=== PATIENT | female | born 1945 | race Caucasian/White ===

== ENCOUNTER 2016-04-18 20:01 | Emergency (ER) | payer MEDICARE, BC ==
[2016-04-18 20:53] VITALS: BP 146/55
--- NOTE | 2016-04-18 21:23 | UC ---
Respiratory Complaint HPI - History of Current Complaint Chief Complaint: UCGeneralIllness Stated Complaint: SINUS/UPPER RESPIRATORY Time Seen by Provider: 04/18/16 21:06 Hx Obtained From: Patient Hx Last Menstrual Period: n/a ?: No Onset/Duration: Gradual Onset, Lasting Days - 12, Worse Since - today Character: Cough: Productive Aggravating Factors: Deep Breaths Alleviating Factors: Nothing Associated Signs And Symptoms: Positive: Dyspnea, Wheezing, Nasal Congestion - Risk Factors Cardiac Risk Factors: Diabetes Tuberculosis Risk Factors: Corticosteriod Use - Allergies/Home Medications Allergies/Adverse Reactions: Allergies Allergy/AdvReac Type Severity Reaction Status Date / Time Benzocaine Allergy Mild Rash Verified 12/22/14 18:54 Cefaclor [From Ceclor] Allergy Mild Rash Verified 12/22/14 18:54 Doxycycline Allergy Mild Rash Verified 12/22/14 18:54 Penicillins Allergy Mild Rash Verified 12/22/14 18:54 Codeine AdvReac Mild stomach Verified 12/22/14 18:54 upset Sulfa Drugs AdvReac Mild Diarrhea Verified 12/22/14 18:54 Levofloxacin [From Levaquin] AdvReac See Comment Verified 12/22/14 18:54 Prednisone AdvReac extreme Verified 12/22/14 18:54 hyperglycemia 400s zithromax AdvReac See Comment Uncoded 12/22/14 18:54 Home Medications: Home Medications Clindamycin Cap(NF) [Cleocin 300 mg Cap(NF)] 300 mg PO Q6H 04/18/16 [History Confirmed 04/18/16] Teriparatide (Recombinant) [Forteo] 600 mcg SC DAILY 04/18/16 [History Confirmed 04/18/16] PMH/Surg Hx/FS Hx/Imm Hx Endocrine History Of: Reports: Diabetes, Thyroid Disease - hypo Cardiovascular History Of: Reports: Cardiac Disorders - CAD, Hypertension Denies: Pacemaker/ICD Respiratory History Of: Reports: COPD Denies: Asthma, Bronchitis GI/ History Of: Reports: Kidney Stones Denies: Ulcer - Surgical History Surgical History: Yes Surgery Procedure, Year, and Place: CORONARY BYPASS- QUAD-2008. GALL BLADDER REMOVAL,BLADDER REPAIR - Family History Known Family History: Positive: Cardiac Disease - Social History Occupation: Retired Lives: With Family Alcohol Use: None Substance Use Type: None, Prescribed Substance Use Comment - Amount & Last Used: no narcotics Smoking Status (MU): Never Smoked Tobacco Have You Smoked in the Last Year: No Review of Systems Respiratory: Shortness Of Breath, Cough Neurological: Headache All Other Systems Reviewed And Are Negative: Yes Physical Exam Triage Information Reviewed: Yes Appearance: No Pain Distress, Ill-Appearing, Cachectic Vital Signs: Initial Vital Signs Temp 97.9 F 04/18/16 20:47 Pulse 87 04/18/16 20:47 Resp 18 04/18/16 20:47 BP 146/55 04/18/16 20:47 Pulse Ox 100 04/18/16 20:47 Vital Signs Reviewed: Yes Eyes: Positive: Conjunctiva Inflamed ENT: Positive: Pharynx normal, TMs normal Neck exam: Normal Neck: Positive: No Lymphadenopathy Respiratory: Positive: Decreased breath sounds, Wheezing - diffuse expiratory with left sided bronchial breath sounds. Cardiovascular: Positive: RRR, No Murmur Musculoskeletal Exam: Normal Neurological Exam: Normal Psychological Exam: Normal Skin Exam: Normal UC Diagnostic Evaluation - Laboratory O2 Sat by Pulse Oximetry: 100 Respiratory Course/Dx - Differential Dx/Diagnosis Differential Diagnosis/HQI/PQRI: Asthma, Lower Resp Infection, Sinusitis Provider Diagnoses: Pneumonia, organism unknown. COPD Discharge - Discharge Plan Condition: Stable Disposition: HOME Prescriptions: Albuterol 2.5MG/3ML (0.083%)* [Ventolin 2.5 MG/3 ML NEB.WANG*] 2.5 mg INH Q6H PRN #120 neb.soln PRN Reason: Respiratory Distress Cefdinir 300 mg PO BID #20 cap Ipratropium 0.5MG/2.5ML NEB* [Atrovent 0.5 MG NEB.WANG*] 0.5 mg INH Q6H PRN #60 units PRN Reason: Sob/Wheezing predniSONE TAB* [Deltasone TAB*] 20 mg PO DAILY #18 tab Patient Education Materials: Pneumonia (ED), Cefdinir (By mouth), Prednisone ( By mouth)
[2016-04-18] MEDS ORDERED: Cefdinir 250mg/5 ml* 100 ml ORAL.SUSP PO ONE (21:33)
--- NOTE | 2016-04-18 21:34 | RAD ---
HISTORY: Cough and shortness of breath COMPARISONS: October 05, 2014 VIEWS: 2: Frontal dual-energy and lateral views of the chest. FINDINGS: CARDIOMEDIASTINAL SILHOUETTE: The cardiomediastinal silhouette is normal. JEANNETTE: The jeannette are normal. PLEURA: The costophrenic angles are sharp. No pleural abnormalities are noted. LUNG PARENCHYMA: There is hyperinflation with flattening of the diaphragm and expansion of the AP diameter of the chest. There is a calcified granuloma of the left upper lobe. ABDOMEN: The upper abdomen is clear. There is no subphrenic gas. BONES AND SOFT TISSUES: The patient is status post median sternotomy. OTHER: None. IMPRESSION: HYPERINFLATION, CONSISTENT WITH COPD. NO ACTIVE CARDIOPULMONARY DISEASE.
== END 2016-04-18 22:05 | disposition home or self-care (01) ==
LOC: UCCORT 20:01
DX: J18.9 Pneumonia, unspecified organism (principal); J44.9 Chronic obstructive pulmonary disease, unspecified; Z88.6 Allergy status to analgesic agent; Z88.1 Allergy status to other antibiotic agents; Z88.0 Allergy status to penicillin; Z88.2 Allergy status to sulfonamides; Z88.8 Allergy status to other drugs, medicaments and biological substances
CPT/HCPCS: 71020; 99212; G0463

== ENCOUNTER 2016-05-26 21:29 | Emergency (ER) | payer MEDICARE, BC ==
[2016-05-26 21:59] VITALS: BP 181/49
[2016-05-26] MEDS ORDERED: HYDROcodone/ACETAMIN 5-325 MG* 1 TAB PO ONE (21:59)
[2016-05-26] MEDS ORDERED: Neomyc/Polym/HC 1% OTIC SUSP* **OTIC ONE (22:05)
--- NOTE | 2016-05-26 22:06 | UC ---
Ear Complaint HPI - HPI Summary HPI Summary: dx'd with "URI" and "pneumonia" in April, was on a cephalosporin which was irritating her stomach, so she was switched to clindamycin today. Suddenly when a cold breeze hit the side of her face today she developed severe pain in left ear and all along the left cheek to under the left jaw. "It feels swollen." Hurts to swallow. No fever. She called her doctor's office and from her description they were worried about an abscess. She did have a dental checkup recently but no procedures. Pain is constant, focused on inside of left ear but spreads over jaw. Hurts to swallow. - History of Current Complaint Chief Complaint: UCGeneralIllness Stated Complaint: EARS,SWOLLEN GLANDS Time Seen by Provider: 05/26/16 21:40 Hx Obtained From: Patient Hx Last Menstrual Period: n/a Onset/Duration: Sudden Onset, Lasting Hours - 3 Severity Initially: Moderate Severity Currently: Severe Aggravating Factors: Nothing Alleviating Factors: Nothing Associated Signs/Symptoms: Positive: URI Symptoms - cough, dx pneumonia a month ago, on second antibiotic. Negative: Discharge, Hearing Loss, Foreign Body Sensation, Trauma to Ear, Swelling @ - Allergies/Home Medications Allergies/Adverse Reactions: Allergies Allergy/AdvReac Type Severity Reaction Status Date / Time Benzocaine Allergy Mild Rash Verified 05/26/16 21:39 Cefaclor [From Ceclor] Allergy Mild Rash Verified 05/26/16 21:39 Doxycycline Allergy Mild Rash Verified 05/26/16 21:39 Penicillins Allergy Mild Rash Verified 05/26/16 21:39 Codeine AdvReac Mild stomach Verified 05/26/16 21:39 upset Sulfa Drugs AdvReac Mild Diarrhea Verified 05/26/16 21:39 Levofloxacin [From Levaquin] AdvReac See Comment Verified 05/26/16 21:39 Prednisone AdvReac extreme Verified 05/26/16 21:39 hyperglycemia 400s zithromax AdvReac See Comment Uncoded 05/26/16 21:39 PMH/Surg Hx/FS Hx/Imm Hx Endocrine History Of: Reports: Diabetes, Thyroid Disease - hypo Cardiovascular History Of: Reports: Cardiac Disorders - CAD, Hypertension Denies: Pacemaker/ICD Respiratory History Of: Reports: COPD Denies: Asthma, Bronchitis GI/ History Of: Reports: Kidney Stones Denies: Ulcer - Surgical History Surgical History: Yes Surgery Procedure, Year, and Place: CORONARY BYPASS- QUAD-2009. GALL BLADDER REMOVAL,BLADDER REPAIR - Family History Known Family History: Positive: Cardiac Disease - Social History Occupation: Retired Lives: With Family Alcohol Use: None Substance Use Type: None, Prescribed Substance Use Comment - Amount & Last Used: no narcotics Smoking Status (MU): Never Smoked Tobacco Have You Smoked in the Last Year: No Review of Systems Constitutional: Fatigue Skin: Negative Eyes: Negative ENT: Ear Ache - left, Nasal Discharge - mild, for past few weeks Respiratory: Cough - productive, for about 4 weeks now Cardiovascular: Negative Gastrointestinal: Negative Genitourinary: Negative Motor: Negative Neurovascular: Negative Musculoskeletal: Negative Neurological: Other - facial pain/ear pain on left side Psychological: Negative All Other Systems Reviewed And Are Negative: Yes Physical Exam Triage Information Reviewed: Yes Appearance: Well-Nourished, Pain Distress - appears chronically ill. Very thin. Hardly opens her eyes when I question her. Answers in a faint, whispery voice. Elizabeth skin, looks well perfused. Alert, conversant, Thin Vital Signs: Initial Vital Signs Temp 98.1 F 05/26/16 21:32 Pulse 81 05/26/16 21:32 Resp 16 05/26/16 21:32 BP 181/49 05/26/16 21:32 Pulse Ox 100 05/26/16 21:32 Vital Signs Reviewed: Yes Eye Exam: Normal Eyes: Positive: Conjunctiva Clear ENT: Positive: Hearing grossly normal, Pharynx normal - able to open jaw fully, no abscess evident, teeth without carious appearance., TMs normal, Muffled/ hoarse voice - she speaks in a whisper, but there is no muffled quality to voice. Swallowing saliva without difficulty.. Negative: Pharyngeal erythema, Nasal congestion, Nasal drainage, TM bulging, TM dull, TM red - left ear canal does seem tender to touch, tragus is sore, hurts to pull pinna, Tonsillar swelling, Tonsillar exudate, Trismus Neck exam: Normal Neck: Positive: Supple, Nontender, No Lymphadenopathy - no swelling, no palpable nodes Respiratory Exam: Normal, Other - productive cough Musculoskeletal Exam: Normal Neurological Exam: Normal Psychological Exam: Normal Skin Exam: Normal Ear Complaint Course/Dx - Course Course Of Treatment: ?source of pain? Trigeminal neuralgia vs external otitis - Differential Dx/Diagnosis Differential Diagnosis/HQI/PQRI: Otitis Externa, Otitis Media, Other - abscess Provider Diagnoses: otitis externa Discharge - Discharge Plan Condition: Stable Disposition: HOME Prescriptions: HYDROcodone/ACETAMIN 5-325 MG* [[place] 5-325 TAB*] 2 tab PO Q6H PRN #20 tab MDD 6 tab PRN Reason: Pain Patient Education Materials: Otitis Externa (ED), Trigeminal Neuralgia (ED)
[2016-05-27] MEDS ORDERED: Neomyc/Polym/HC 1% OTIC SUSP* **OTIC LEFT EAR SCH (09:00)
== END 2016-05-26 22:17 | disposition home or self-care (01) ==
LOC: UCCORT 21:29
DX: H60.92 Unspecified otitis externa, left ear (principal); Z95.1 Presence of aortocoronary bypass graft; Z90.49 Acquired absence of other specified parts of digestive tract; Z88.1 Allergy status to other antibiotic agents; Z88.5 Allergy status to narcotic agent; Z88.0 Allergy status to penicillin; Z88.2 Allergy status to sulfonamides
CPT/HCPCS: 99213; A9270-GY; G0463

== ENCOUNTER 2016-07-22 15:01 | Emergency (ER) | payer BC, MEDICARE ==
[2016-07-22 15:46] VITALS: BP 186/60
--- NOTE | 2016-07-22 16:04 | UC ---
Minor Trauma HPI - HPI Summary HPI Summary: 70 yo female was wrapped in leash and fell striking the right side of her body no LOC right orbital pain right shoulder pain right lateral neck pain mild pain - History of Current Complaint Chief Complaint: UCGeneralIllness Stated Complaint: RIGHT EYE,SHOULDER,ARM,& WRIST PAIN(FALL) Time Seen by Provider: 07/22/16 15:44 Hx Obtained From: Patient Hx Last Menstrual Period: n/a Onset/Duration: Sudden Onset Onset Of Pain: Immediate Severity Initially: Moderate Severity Currently: Mild Pain Intensity: 4 Pain Scale Used: 0-10 Numeric Mechanism Of Injury: Fall From A Standing Position Aggravating Factor(s): Deep Breaths, Movement Alleviating Factor(s): OTC Meds Associated Signs And Symptoms: Positive: Ecchymosis, Swelling. Negative: Loss Of Consciousness, Other: - Risk Factors Penetrating Injury Risk Factors: Negative - Allergies/Home Medications Allergies/Adverse Reactions: Allergies Allergy/AdvReac Type Severity Reaction Status Date / Time Benzocaine Allergy Mild Rash Verified 07/22/16 15:30 Cefaclor [From Ceclor] Allergy Mild Rash Verified 07/22/16 15:30 Doxycycline Allergy Mild Rash Verified 07/22/16 15:30 Penicillins Allergy Mild Rash Verified 07/22/16 15:30 Codeine AdvReac Mild stomach Verified 07/22/16 15:30 upset Sulfa Drugs AdvReac Mild Diarrhea Verified 07/22/16 15:30 Levofloxacin [From Levaquin] AdvReac See Comment Verified 07/22/16 15:30 Prednisone AdvReac extreme Verified 07/22/16 15:30 hyperglycemia 400s zithromax AdvReac See Comment Uncoded 07/22/16 15:30 Home Medications: Home Medications Ezetimibe TAB* [Zetia TAB*] 10 mg PO DAILY 07/22/16 [History Confirmed 07/22/16] Iron-Vitamin C [Fe C Tab 100-250 mg] 1 tab DAILY 07/22/16 [History Confirmed 03/28] PMH/Surg Hx/FS Hx/Imm Hx Endocrine History Of: Reports: Diabetes - Type 1, Thyroid Disease - hypo Cardiovascular History Of: Reports: Cardiac Disorders - CAD, Hypertension Denies: Pacemaker/ICD Respiratory History Of: Reports: COPD, Pneumonia Denies: Asthma, Bronchitis GI/ History Of: Reports: Kidney Stones Denies: Ulcer - Surgical History Surgical History: Yes Surgery Procedure, Year, and Place: CORONARY BYPASS- QUAD-2009. GALL BLADDER REMOVAL,BLADDER REPAIR. RIGHT leg vascular surgery 2014 - Family History Known Family History: Positive: Cardiac Disease - Social History Alcohol Use: None Substance Use Type: None Substance Use Comment - Amount & Last Used: no narcotics Smoking Status (MU): Never Smoked Tobacco Have You Smoked in the Last Year: No - Immunization History Most Recent Influenza Vaccination: January 2016 Most Recent Tetanus Shot: UTD Most Recent Pneumonia Vaccination: UTD Review of Systems Constitutional: Negative Skin: Bruising Eyes: Negative ENT: Negative Respiratory: Negative Cardiovascular: Negative Gastrointestinal: Negative Genitourinary: Negative Motor: Negative Neurovascular: Negative Musculoskeletal: Arthralgia Neurological: Headache Psychological: Negative All Other Systems Reviewed And Are Negative: Yes Physical Exam Triage Information Reviewed: Yes Appearance: Well-Appearing, No Pain Distress, Well-Nourished Vital Signs: Initial Vital Signs Temp 97.4 F 07/22/16 15:31 Pulse 65 07/22/16 15:31 Resp 18 07/22/16 15:31 BP 186/60 07/22/16 15:31 Pulse Ox 100 07/22/16 15:31 Vital Signs Reviewed: Yes Eyes: Positive: Conjunctiva Clear ENT: Positive: Hearing grossly normal, TMs normal. Negative: Nasal congestion, Nasal drainage, Tonsillar exudate, Trismus, Muffled/hoarse voice Dental Exam: Normal Dental: Positive: Other: - no malocclusion/no TMJ tenderness Neck: Positive: Supple, Nontender, No Lymphadenopathy Respiratory: Positive: Chest non-tender - tender sternum-states she is always tender here, No respiratory distress, No accessory muscle use, Crackles - right base- recently rxed for pneumonia Cardiovascular: Positive: RRR, No Murmur Musculoskeletal: Positive: Other: - see image Psychological Exam: Normal Skin Exam: Normal Minor Trauma Course/Dx - Differential Dx/Diagnosis Provider Diagnoses: fall. right periorbital hematoma. right shoulder contusion Discharge - Discharge Plan Condition: Stable Disposition: HOME Patient Education Materials: Shoulder Pain (ED), Hematoma (ED) Referrals: Mo Caal MD [Primary Care Provider] - 2 Weeks (you BP was 186/60) Additional Instructions: rest tylenol ice recheck for new symptoms Images Head: 1 - hematoma Front/Back of Body, Lg ([place]): 1 - tender/near full abduction
--- NOTE | 2016-07-22 16:31 | RAD ---
Indication: Right shoulder injury. 3 views of the right shoulder demonstrates no definite fracture. AC joint degenerative change is noted. IMPRESSION: No fracture of the right shoulder is noted. AC joint arthritis is noted.
== END 2016-07-22 16:44 | disposition home or self-care (01) ==
LOC: UCCORT 15:01
DX: S40.011A Contusion of right shoulder, initial encounter (principal); S05.11XA Contusion of eyeball and orbital tissues, right eye, initial encounter; W19.XXXA Unspecified fall, initial encounter; Y93.9 Activity, unspecified; Y92.9 Unspecified place or not applicable; Z88.1 Allergy status to other antibiotic agents; Z88.5 Allergy status to narcotic agent; Z88.0 Allergy status to penicillin; Z88.2 Allergy status to sulfonamides; E10.9 Type 1 diabetes mellitus without complications; E03.9 Hypothyroidism, unspecified; I25.10 Atherosclerotic heart disease of native coronary artery without angina pectoris; Z95.1 Presence of aortocoronary bypass graft; I10 Essential (primary) hypertension; Z90.49 Acquired absence of other specified parts of digestive tract
CPT/HCPCS: 99212; G0463

== ENCOUNTER 2016-10-23 12:25 | Emergency (ER) | payer BC, MEDICARE ==
--- NOTE | 2016-10-23 12:32 | ED ---
HPI Chest Pain - HPI Summary HPI Summary: 71 YEAR OLD FEMALE PRESENTS WITH COMPLAINS OF LEFT SIDED CHEST PAIN WITH RADIATION TO THE SHOULDER BLADES. - History of Current Complaint Time Seen by Provider: 10/23/16 12:28 - Allergy/Home Medications Allergies/Adverse Reactions: Allergies Allergy/AdvReac Type Severity Reaction Status Date / Time Benzocaine Allergy Mild Rash Verified 10/23/16 12:38 Cefaclor [From Ceclor] Allergy Mild Rash Verified 10/23/16 12:38 Doxycycline Allergy Mild Rash Verified 10/23/16 12:38 Penicillins Allergy Mild Rash Verified 10/23/16 12:38 Codeine AdvReac Mild stomach Verified 10/23/16 12:38 upset Sulfa Drugs AdvReac Mild Diarrhea Verified 10/23/16 12:38 Levofloxacin [From Levaquin] AdvReac See Comment Verified 10/23/16 12:38 Prednisone AdvReac extreme Verified 10/23/16 12:38 hyperglycemia 400s zithromax AdvReac See Comment Uncoded 10/23/16 12:38 PMH/Surg Hx/FS Hx/Imm Hx Endocrine/Hematology History: Reports: Hx Diabetes - Type 1, Hx Thyroid Disease - hypo Cardiovascular History: Reports: Hx Hypertension Denies: Hx Pacemaker/ICD Respiratory History: Reports: Hx Chronic Obstructive Pulmonary Disease (COPD), Hx Pneumonia Denies: Hx Asthma GI History: Denies: Hx Ulcer History: Reports: Hx Kidney Stones - Surgical History Surgery Procedure, Year, and Place: CORONARY BYPASS- QUAD-2008. GALL BLADDER REMOVAL,BLADDER REPAIR. RIGHT leg vascular surgery 2014 Infectious Disease History: Denies: Hx Hepatitis, Hx Human Immunodeficiency Virus (HIV) - Family History Known Family History: Positive: Cardiac Disease - Social History Alcohol Use: None Substance Use Type: Reports: None Substance Use Comment - Amount & Last Used: no narcotics Smoking Status (MU): Never Smoked Tobacco Have You Smoked in the Last Year: No Review of Systems Positive: Chest Pain All Other Systems Reviewed And Are Negative: Yes Physical Exam Triage Information Reviewed: Yes Chest Pain Course/Dx - Diagnoses Provider Diagnoses: Chest pain Discharge - Discharge Plan Condition: Stable Disposition: AGAINST MEDICAL ADVICE Patient Education Materials: Chest Pain (ED) Referrals: Mo Caal MD [Primary Care Provider] -
[2016-10-23 12:38] VITALS: BP 148/43
[2016-10-23] MEDS ORDERED: Aspirin Low Dose CHEW TAB* 81 MG PO ONE (12:39)
== END 2016-10-23 12:57 | disposition left against medical advice (07) ==
LOC: UCCORT 12:25
DX: R07.9 Chest pain, unspecified (principal); J44.9 Chronic obstructive pulmonary disease, unspecified; B20 Human immunodeficiency virus [HIV] disease; Z88.4 Allergy status to anesthetic agent; Z88.1 Allergy status to other antibiotic agents; Z88.5 Allergy status to narcotic agent; Z88.0 Allergy status to penicillin; Z88.2 Allergy status to sulfonamides; Z88.8 Allergy status to other drugs, medicaments and biological substances; E10.8 Type 1 diabetes mellitus with unspecified complications; Z95.0 Presence of cardiac pacemaker; Z95.1 Presence of aortocoronary bypass graft
CPT/HCPCS: 93005; 99212; A9270-GY; G0463

== ENCOUNTER 2017-05-02 12:13 | Emergency (ER) | payer MEDICARE, BC ==
--- OUTSIDE RECORDS SUMMARY | 2017-05-02 14:12 | XMS REPORT ---
:1945 External Reference #:[id number] Author Organization [facility] Address [address] [place] [address] Phone [phone] Care Team Providers Name Role Phone Mo Caal M.D. 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 Active Onset: 07/05/2014 Benign essential hypertension Mo Caal M.D. Active Onset: 07/05/2014 Hypothyroidism Mo Caal M.D. Active Onset: 07/05/2014 Type 1 diabetes mellitus Mo Caal M.D. Active Onset: 07/19/2014 Coronary atherosclerosis Mo Caal M.D. Active Onset: 12/06/2014 Chronic obstructive lung disease Mo Caal M.D. Active Onset: 01/16/2015 Chronic obstructive lung disease Mo Caal M.D. Active Onset: 05/17/2015 Diabetic retinopathy Mo Caal M.D. Active Onset: 07/31/2015 Absence seizure Mo Caal M.D. Active Onset: 08/04/2015 Osteoporosis Mo Caal M.D. Active Family History Date Family Member(s) Problem(s) Comments Father due to Heart Attack () Mother due to COPD () Mother due to Congestive Heart Failure () Social History Type Date Description Comments Lives With Spouse Smoke-Free Home is smoke-free Occupation Retired Work Status Retired Cigarette Use Never Smoked Cigarettes ETOH Use Denies alcohol use Recreational Drug Use Never Used Drugs Smoking 04/19/2017 Patient has never smoked Daily Caffeine Consumes on average 2 cups of regular coffee per day Enjoy Exercising 01/07/2017 Enjoys exercising ONE day a week. Tattoo/Piercing Pierced ears Sun Exposure 01/07/2017 Does not use sunscreen Teaching done to use 30 or more sunscreen. Seat Belt/Car Seat Always uses seat belt Smoke Alarms Yes Allergies, Adverse Reactions, Alerts Date Description Reaction Status Severity Comments 07/05/2014 Penicillin active Rash 07/05/2014 Ceclor active 07/05/2014 Doxycycline active 07/05/2014 Sulfa Antibiotics active Stomach 07/05/2014 Benzocaine active Severe Rash 07/05/2014 Codeine active Stomach 07/05/2014 Erythromycin active Stomach Pain 11/05/2014 Zithromax active per endocrineologist 07/10/2015 Crow Inhibitors cough active Mild 07/14/2016 Levaquin active weakness Medications Medication Date Status Form Strength Qnty SIG Indications Ordering Provider Furosemide 01/07 Active Tablets 20mg 1 by mouth every day Mo Lopez M.D. Vitamin C 07/14 Active Tablets 500mg 30tab Take One D64.9 s Tablet By Mo Jaramillo Every M.D. Day With Iron Divalproex 01/12 Active Tablets ER 500mg 30tab Take One Afua, Sodium ER 24HR s Tablet By Mo Jaramillo Every M.D. Day At Bedtime Losartan 01/09 Active Tablets 100mg 1 by mouth R05 Afua, Potassium every day Mo Lopez M.D. Levetiracetam 01/09 Active Tablets 750mg 60tab Take One s Tablet By NimaShai Jaramillo Twice M.D. A Day Metoprolol 10/29 Active Tablets 25mg 90tab 04/13 by mouth Afua Tartrate s twice a day Nima. M.D. Escitalopram 08/20 Active Tablets 5mg 90tab Take One F43.23 , Oxalate s Tablet By Nima. Mouth Every M.D. Day Levothyroxine 08/12 Active Tablets 100mcg 30tab Take One , Sodium s Tablet By Nima. Mouth Every M.D. Day Incruse Ellipta 04/09 Active Aerosol 62.5mcg/I 30uni Inhale One J44.9 nh ts puff By Nima. Mouth Every M.D. Day Advair Diskus 01/16 Active Aerosol 500-50mcg 60uni Inhale One /Dose ts puff By Nima. Mouth Twice M.D. A Day , Rinse And Spit After Use Zofran 10/05 Active Tablets 4mg 20tab take one 787.02 s tablet by Nima. mouth every M.D. 6 hours as needed for nausea and vomiting Freestyle Lite 07/31 Active Strip 200un Test 6 Times its Per Day Mo Lopez M.D. Aspir-[address] 81mg 1 by mouth Unknown /0000 every day Vitamin D3 Active Capsules 1000Unit 1 by mouth Unknown /0000 every day Tums Ultra 1000 Active Chewtabs 1000mg one table by Unknown /0000 mouth every 4 hours as needed. Humalog Active Solution 100Unit/M sliding Unknown /0000 Cartridge L scale as needed Ferrous Sulfate Active Tablets 325(65Fe) 30tab take 1 Alley, / mg s tablet by Nima. mouth once a M.D. day Ranitidine HCL Active Capsules 150mg 60cap Take One Alley, s Capsule By Nima. Mouth Twice M.D. A Day Primidone Active Tablets 50mg 30tab Take 1 Alley, s Tablet By Nima. Mouth At M.D. Night Amlodipine Active Tablets 5mg 1 by mouth Unknown Besylate /0000 every day Tymlos Active Solution 3120mcg/1 once daily Unknown /0000 Pen-Inject .56ML as directed Align Active Capsules 4mg 1 by mouth Unknown /0000 every day Cefdinir 11/15 Hx Capsules 300mg 20cap 1 by mouth J01.90 s twice a day Mo Agee M.D. 04/19 Clarithromycin 02/22 Hx Tablets 500mg 20tab 1 cap by Arianna01.90 s mouth twice Nima. - a day M.D. 02/24 Cefuroxime 02/15 Hx Tablets 500mg 20tab 1 by mouth Arianna01.90 Afua Ax s twice a day Mo Agee M.D. 02/22 Prednisone 02/15 Hx Tablets 20mg 18tab 3 tab by J44.1 s mouth every Nima. - day for 3 M.D. 02/24 days then by mouth daily for 3 days then 1 by mouth daily for 3 days Cephalexin 10/29 Hx Capsules 500mg 42cap 1 by mouth s four times a Nima. - day M.D. 01/07 Prednisone 10/29 Hx Tablets 20mg 18tab 3 tab by J44.1 s mouth every Nima. - day for 3 M.D. 11/07 days then by mouth daily for 3 days then 1 by mouth daily for 3 days Cefdinir 10/29 Hx Capsules 300mg 14cap 1 by mouth J18.9 s twice a day Mo Agee M.D. 11/05 Cefdinir 08/14 Hx Capsules 300mg 20cap 1 by mouth J01.90 s twice a day Mo Agee M.D. 08/24 Iron 08/07 Hx Tablets 325(65Fe) 1 by mouth mg every day Mo Agee M.D. 08/07 Zetia 08/07 Hx Tablets 10mg 90tab 1 by mouth s every day Mo Agee M.D. 10/07 Cefdinir 07/06 Hx Capsules 300mg 14cap 1 by mouth s twice a day Mo Agee M.D. 07/13 Ezetimibe 06/25 Hx Tablets 10mg 30tab 1 by mouth Jose s every day Mo Agee M.D. 04/19 Cefdinir 02/23 Hx Capsules 300mg 20cap 1 by mouth J44.1 s twice a day Mo Agee M.D. 06/14 Prednisone 06/04 Hx Tablets 20mg 18tab 3 tab by J44.1 s mouth every Nima. - day for 3 M.D. 06/13 days then by mouth daily for 3 days then 1 by mouth daily for 3 days Clindamycin HCL 05/25 Hx Capsules 150mg 40cap 1 by mouth J01.90 s four times a Nima. day M.D. 06/04 Cefdinir 05/21 Hx Capsules 300mg 20cap 1 by mouth J01.90 s twice a day NimaShai Agee M.D. 05/25 Atorvastatin 05/07 Hx Tablets 10mg 90tab 1 by mouth , s every day Mo Agee M.D. 06/25 Forteo 04/09 Hx Solution 600mcg/2. 1 injection 4ML daily 20 mcg Nima. Cyndie MShaiD. 04/19 Clindamycin HCL 04/09 Hx Capsules 150mg 40cap 1 by mouth J01.90 s four times a Nima day M.D. 04/19 Prednisone 04/09 Hx Tablets 20mg 18tab 3 tab by J44.1 s mouth every Nima. - day for 3 M.D. 04/18 days then by mouth daily for 3 days then 1 by mouth daily for 3 days Metoprolol 10/21 Hx Tablets ER 25mg 45tab 1/2 tab by Afua, Succinate ER 24HR s mouth every Nima. - day M.D. 10/29 Escitalopram 07/30 Hx Tablets 10mg 30tab 1/2 by mouth F43.23 Afua, Oxalate s every day NimaShai Agee M.D. 08/20 Losartan 05/17 Hx Tablets 50mg 30tab 1 by mouth R05 Afua, Potassium s every Nima. - evening M.D. 01/09 Prednisone 12/22 Hx Tablets 20mg 18tab 3 tab by s mouth every - day for 3 M.D. 12/31 days then by mouth daily for 3 days then 1 by mouth daily for 3 days Cefdinir 12/22 Hx Capsules 300mg 20cap 1 by mouth s twice a day Mo Agee M.D. 01/01 Prednisone 11/22 Hx Tablets 20mg 18tab 3 tab by 493.92 s mouth every Nima. - day for 3 M.D. 12/01 days then by mouth daily for 3 days then 1 by mouth daily for 3 days Spiriva Respimat 11/05 Hx Aerosol 2.5mcg/Ac 4gm inhale 2 J44.9 t puffs by Nima. - mouth daily M.D. 04/09 for chronic /2014 obstructive lung disease Levaquin 10/05 Hx Tablets 500mg 10tab 1 by mouth 486 s every day NimaJohn Agee M.D. 10/05 Cefdinir 10/05 Hx Capsules 300mg 20cap 1 by mouth 486 s twice a day Mo Agee M.D. 10/15 Albuterol 08/29 Hx Nebulizer (2.5mg/3M 75ml 1 unit via L) 0.083% nebulizer Nima. - every 4 M.D. 07/09 hours needed Advair Diskus 08/29 Hx Aerosol 250-50mcg 60uni 1 puff twice /Dose ts a day Mo Agee M.D. 01/16 Advair Diskus 07/31 Hx Aerosol 500-50mcg 1unit 1 puff twice /Dose s a day Mo Agee M.D. 08/29 Metoprolol 07/05 Hx Tablets ER 12.5mg 90tab 1 by mouth , Succinate 24HR s every day Mo Agee M.D. 10/21 Divalproex 00/ Hx Tablets DR 500mg 30tab 1 tabs by Afua, / s mouth every Nima. - night M.D. 01/12 Synthroid 0000 Hx Tablets 100mcg 30tab 1 by mouth Afua, /0000 s every day Mo Agee M.D. 08/12 Ramipril Hx Capsules 2.5mg 1 by mouth R05 Unknown /0000 every day - 05/17 Cholestyramine Hx Packet 4gm 1/2 Pack Unknown /0000 Every Other - Day 10/05 Levetiracetam Hx Tablets 500mg 1 by mouth Unknown /0000 twice a day - 01/09 Medications Administered in Office Medication Date Status Form Strength Qnty SIG Indications Ordering Provider Administer Administered Injection Mo Caal. MGhazal Virus Vaccine Immunizations CPT Code Status Date Vaccine Lot # [id number] Given 01/13/2017 Influenza Vaccine Split Virus Preservative Free [place] [id number] Given 01/10/2016 Influenza Vaccine Split Virus Preservative Free Im [id number] Use 88538 Given 01/05/2015 Influenza Virus Vaccine, Quadrivalent, Split Virus, Im Use 3 &Up Vital Signs Date Vital Result Comment 04/19/2017 Weight 95.38 lb BP Systolic 160 mmHg BP Diastolic 60 mmHg Body Temperature 98.2 F Height 66.0 inches 5'6" BMI (Body Mass Index) 15.4 kg/m2 02/15/2017 Weight 96.00 lb BP Systolic 140 mmHg BP Diastolic 58 mmHg Body Temperature 98.0 F Height 66.0 inches 5'6" BMI (Body Mass Index) 15.5 kg/m2 01/07/2017 Weight 98.00 lb BP Systolic 120 mmHg BP Diastolic 50 mmHg Body Temperature 97.5 F Height 66.0 inches 5'6" Heart Rate 68 /min BMI (Body Mass Index) 15.8 kg/m2 11/19/2016 Weight 93.00 lb BP Systolic 140 mmHg BP Diastolic 52 mmHg Body Temperature 97.7 F Height 66.0 inches 5'6" BMI (Body Mass Index) 15.0 kg/m2 10/29/2016 Weight 96.12 lb BP Systolic 130 mmHg BP Diastolic 50 mmHg Body Temperature 97.8 F Height 66.0 inches 5'6" Heart Rate 64 /min BMI (Body Mass Index) 15.5 kg/m2 10/07/2016 Weight 95.00 lb BP Systolic 104 mmHg BP Diastolic 56 mmHg Body Temperature 97.8 F Height 66.0 inches 5'6" BMI (Body Mass Index) 15.3 kg/m2 09/17/2016 Weight 95.00 lb BP Systolic 130 mmHg BP Diastolic 58 mmHg Body Temperature 97.5 F Height 66.0 inches 5'6" BMI (Body Mass Index) 15.3 kg/m2 08/14/2016 Weight 97.00 lb BP Systolic 110 mmHg BP Diastolic 50 mmHg Body Temperature 97.9 F Height 66.0 inches 5'6" Heart Rate 88 /min BMI (Body Mass Index) 15.7 kg/m2 08/07/2016 Weight 99.00 lb BP Systolic 100 mmHg BP Diastolic 40 mmHg Body Temperature 97.1 F Height 66.0 inches 5'6" Heart Rate 64 /min BMI (Body Mass Index) 16.0 kg/m2 07/14/2016 Weight 97.12 lb BP Systolic 126 mmHg BP Diastolic 60 mmHg Body Temperature 96.9 F Height 66.0 inches 5'6" O2 % BldC Oximetry 96 % BMI (Body Mass Index) 15.7 kg/m2 06/25/2016 Weight 96.75 lb BP Systolic 100 mmHg BP Diastolic 40 mmHg Body Temperature 97.7 F Height 66.0 inches 5'6" Heart Rate 72 /min Ap BMI (Body Mass Index) 15.6 kg/m2 06/04/2016 Weight 98.00 lb BP Systolic 100 mmHg BP Diastolic 50 mmHg Body Temperature 98.1 F Height 66.0 inches 5'6" Heart Rate 52 /min BMI (Body Mass Index) 15.8 kg/m2 05/21/2016 Weight 100.50 lb BP Systolic 100 mmHg BP Diastolic 50 mmHg Body Temperature 98.0 F Height 66.0 inches 5'6" Heart Rate 72 /min BMI (Body Mass Index) 16.2 kg/m2 05/07/2016 Weight 100.50 lb BP Systolic 134 mmHg BP Diastolic 77 mmHg Body Temperature 97.9 F Height 66.0 inches 5'6" Heart Rate 80 /min BMI (Body Mass Index) 16.2 kg/m2 04/09/2016 Weight 107.00 lb BP Systolic 150 mmHg BP Diastolic 58 mmHg Body Temperature 97.7 F Height 66.0 inches 5'6" Heart Rate 72 /min BMI (Body Mass Index) 17.3 kg/m2 01/23/2016 Weight 104.50 lb BP Systolic 130 mmHg BP Diastolic 50 mmHg Body Temperature 98.1 F Height 66.0 inches 5'6" Heart Rate 68 /min BMI (Body Mass Index) 16.9 kg/m2 01/10/2016 Weight 103.50 lb BP Systolic 130 mmHg BP Diastolic 50 mmHg Body Temperature 97.1 F Height 66.0 inches 5'6" Heart Rate 68 /min BMI (Body Mass Index) 16.7 kg/m2 10/10/2015 Weight 103.00 lb BP Systolic 100 mmHg BP Diastolic 50 mmHg Body Temperature 97.8 F Height 66.0 inches 5'6" Heart Rate 72 /min BMI (Body Mass Index) 16.6 kg/m2 09/27/2015 Weight 100.38 lb BP Systolic 120 mmHg BP Diastolic 42 mmHg Body Temperature 98.0 F Height 66.0 inches 5'6" Heart Rate 56 /min BMI (Body Mass Index) 16.2 kg/m2 08/21/2015 Weight 101.00 lb BP Systolic 120 mmHg BP Diastolic 52 mmHg Body Temperature 97.9 F Height 66.0 inches 5'6" BMI (Body Mass Index) 16.3 kg/m2 07/31/2015 Weight 104.00 lb BP Systolic 122 mmHg BP Diastolic 60 mmHg Body Temperature 97.4 F Height 66.0 inches 5'6" BMI (Body Mass Index) 16.8 kg/m2 07/10/2015 Weight 102.00 lb BP Systolic 130 mmHg BP Diastolic 50 mmHg Body Temperature 97.7 F Height 66.0 inches 5'6" Heart Rate 56 /min BMI (Body Mass Index) 16.5 kg/m2 05/17/2015 Weight 104.00 lb BP Systolic 150 mmHg BP Diastolic 60 mmHg Body Temperature 97.9 F Height 66.0 inches 5'6" Heart Rate 52 /min 67 O2 % BldC Oximetry 97 % BMI (Body Mass Index) 16.8 kg/m2 04/09/2015 Weight 103.00 lb BP Systolic 122 mmHg BP Diastolic 56 mmHg Body Temperature 98.4 F Height 66.0 inches 5'6" BMI (Body Mass Index) 16.6 kg/m2 02/08/2015 Weight 103.00 lb BP Systolic 120 mmHg BP Diastolic 40 mmHg Body Temperature 98.3 F Height 66.0 inches 5'6" Heart Rate 64 /min BMI (Body Mass Index) 16.6 kg/m2 01/16/2015 Weight 102.00 lb BP Systolic 108 mmHg BP Diastolic 50 mmHg Body Temperature 98.1 F Height 66.0 inches 5'6" BMI (Body Mass Index) 16.5 kg/m2 12/06/2014 Weight 100.00 lb BP Systolic 110 mmHg BP Diastolic 42 mmHg Body Temperature 97.4 F Height 66.0 inches 5'6" BMI (Body Mass Index) 16.1 kg/m2 11/22/2014 Weight 103.00 lb BP Systolic 120 mmHg BP Diastolic 54 mmHg Body Temperature 98.0 F Height 66.0 inches 5'6" BMI (Body Mass Index) 16.6 kg/m2 11/05/2014 Weight 101.00 lb BP Systolic 112 mmHg BP Diastolic 58 mmHg Body Temperature 97.7 F Height 66.0 inches 5'6" BMI (Body Mass Index) 16.3 kg/m2 10/05/2014 Weight 96.50 lb BP Systolic 140 mmHg BP Diastolic 50 mmHg Body Temperature 97.4 F Height 66.0 inches 5'6" Heart Rate 80 /min BMI (Body Mass Index) 15.6 kg/m2 08/29/2014 Weight 99.00 lb BP Systolic 134 mmHg BP Diastolic 62 mmHg Body Temperature 97.8 F Height 66.0 inches 5'6" BMI (Body Mass Index) 16.0 kg/m2 07/31/2014 Weight 101.00 lb BP Systolic 146 mmHg BP Diastolic 58 mmHg Body Temperature 97.8 F Height 66.0 inches 5'6" BMI (Body Mass Index) 16.3 kg/m2 07/05/2014 Weight 103.00 lb BP Systolic 120 mmHg BP Diastolic 58 mmHg Body Temperature 98.2 F Height 66.0 inches 5'6" Heart Rate 76 /min Respiratory Rate 16 /min BMI (Body Mass Index) 16.6 kg/m2 Results Test Date Test Result H/L Range Note Laboratory test finding 03/01/2017 Hemoglobin A1c 7.9 High 4-6 CBC With Diff 01/07/2017 WBC 6.4 10*3/uL (4.1-11.0) RBC 3.18 10*6/uL Low (4.00-5.40) HGB 10.4 g/dL Low (12.0-16.0) HCT 29.6 % Low (36.0-47.0) MCV 93.1 fL (80.0-95.0) MCH 32.6 pg High (27.0-32.0) MCHC 35.0 g/dL (32.0-36.0) RDW 13.6 % (10.5-14.5) PLT 226 10*3/uL (150-450) MPV 9.3 fL (7.1-10.7) Neut % 66.2 % (35.0-75.0) Lymph % 20.4 % (16.0-52.0) [place] % 8.9 % High (0.0-8.0) Eos % 3.9 % (0.0-5.0) Baso % 0.6 % (0.0-4.0) Neut # 4.3 10*3/uL (1.8-7.7) Lymph # 1.3 10*3/uL (1.2-4.8) [place] # 0.6 10*3/uL (0.0-0.8) Eos # 0.2 10*3/uL (0.0-0.5) Baso # 0.0 10*3/uL (0.0-0.2) Laboratory test finding 09/17/2016 Lipase 52 Low 73-393 Lipid Panel 09/17/2016 Cholesterol Total 212 200-239 [place] High Density Lipoprotein 110 >40 LDL Low Density Lipoprotein 88 Triglycerides 70 <150 BMP W/Egfr 09/17/2016 Calcium 9.5 Creatinine 0.9 Sodium 131 Low 136-145 Carbon Dioxide 27 Glucose Serum 144 High 74-106 Chloride 99 Potassium 5.1 GFR (Calculated) >60 Liver - Hepatic Panel 09/17/2016 Albumin 3.9 Bilirubin Total 0.3 Alkaline Phosphatase 132 High 45-117 Ast-Sgot 20 Alt-SGPT 26 Protein Total 8.9 Laboratory test finding 09/17/2016 CRP C-Reactive Protein 4.9 High <3 Laboratory test finding 09/17/2016 CK Creatine Kinase 57 CBC With Auto Diff 09/17/2016 White Blood Count 10.5 RBC Red Blood Count 3.38 Low 3.9-5.4 Hemoglobin 10.4 Low 11.6-15.8 Hematocrit 31.1 Low 36-46.1 MCV (Corpuscular Volume) 92 MCH (Corpuscular Hemoglobin) 30.8 MCHC (Corpuscular Hemog Conc) 33.4 RDW 48.4 High 3-47 Platelet Count 401 High 150-400 MPV 9.4 Neutrophils 71.7 Lymphocytes 18.4 Low 20-42 Monocytes 7.6 Eosinophils 1.9 Basophils 0.4 Absolute Basophils 0.04 Absolute Eosinophils 0.2 Absolute Lymphocytes 1.92 Absolute Monocytes 0.8 Absolute Neutrophils 7.5 High 1.8-7 Laboratory test finding 10/10/2015 Vitamin B12 @ 1603 pg/mL High (193-986 ) CMP Panel 07/12/2015 Calcium 8.6 Carbon Dioxide 28 Chloride 104 Creatinine 0.8 Glucose Serum 166 High 74-106 Potassium 4.4 Sodium 138 BUN - Urea Nitrogen 22 High 7-18 Laboratory test finding 07/12/2015 PTT Partial Thromboplasin 39 High 23.9- 34.3 Protime W/ Inr 07/12/2015 Prothrombin Time 12.8 International Normalized Ratio 0.9 CBC With Auto Diff 07/12/2015 White Blood Count 6.3 RBC Red Blood Count 1.15 Low 3.9-5.4 Hemoglobin 10.1 Low 11.6-15.8 Hematocrit 29.9 Low 36-46.1 MCV (Corpuscular Volume) 94.9 MCH (Corpuscular Hemoglobin) 32.1 MCHC (Corpuscular Hemog Conc) 33.8 RDW 43.4 Platelet Count 244 MPV 10.8 Neutrophils 57.6 Lymphocytes 29.1 Monocytes 10.4 Eosinophils 2.4 Basophils 0.5 Absolute Basophils 0.03 Absolute Eosinophils 0.15 Absolute Lymphocytes 1.82 Absolute Monocytes 0.65 Absolute Neutrophils 3.61 Laboratory test finding 07/10/2015 Michelle SCRN W/ Reflex @ NEGATIVE (Neg) C Reactive Protein @ <0.3 mg/dL (0.0-0.5) Ferritin @ 330 ng/mL High (8-252) Hepatitis Profile Acute 07/10/2015 Hepatitis B S Ag @ NEGATIVE (Neg) Hep. B Core Igm @ NEGATIVE (Neg) Hepatitis A AB Igm @ NEGATIVE (Neg) Hepatitis C AB @ NEGATIVE (Neg) 1 Activated Partial Thromboplasin Time 12/19/2014 Aptt 23.6 s (22.0-32.6) Basic Metabolic Panel 12/19/2014 Sodium 133 mmol/L Low (136-145) Potassium 4.6 mmol/L (3.6-5.2) Chloride 98 mmol/L Low (100-108) Co2 27 mmol/L (22-31) Anion Gap 8 mmol/L (7-16) Urea Nitrogen 20 mg/dL (7-24) Creatinine 0.8 mg/dL (0.6-1.0) BUN/Creat Ratio 25.0 RATIO High (10.0-20.0) Glucose 229 mg/dL High (70-99) Calcium 9.1 mg/dL (8.4-10.2) GFR 76 ml/min/1.73m2 (>59) GFR ( Amer) >90 ml/min/1.73m2 (>59) GFR Interpretation <SEE NOTE> 2 CBC With Diff 12/19/2014 WBC 6.1 10*3/uL (4.1-11.0) RBC 3.04 10*6/uL Low (4.00-5.40) HGB 10.2 g/dL Low (12.0-16.0) HCT 29.2 % Low (36.0-47.0) MCV 96.3 fL High (80.0-95.0) MCH 33.5 pg High (27.0-32.0) MCHC 34.8 g/dL (32.0-36.0) RDW 12.7 % (10.5-14.5) PLT 224 10*3/uL (150-450) MPV 8.6 fL (7.1-10.7) Neut % 55.8 % (35.0-75.0) Lymph % 28.4 % (16.0-52.0) [place] % 10.9 % High (0.0-8.0) Eos % 3.8 % (0.0-5.0) Baso % 1.1 % (0.0-4.0) Neut # 3.4 10*3/uL (1.8-7.7) Lymph # 1.7 10*3/uL (1.2-4.8) [place] # 0.7 10*3/uL (0.0-0.8) Eos # 0.2 10*3/uL (0.0-0.5) Baso # 0.1 10*3/uL (0.0-0.2) Protime 12/19/2014 PT 10.0 s (9.2-11.9) Inr 0.94 3 CMP 12/06/2014 Sodium 137 mmol/L (136-145) Potassium 4.6 mmol/L (3.6-5.2) Chloride 101 mmol/L (100-108) Co2 29 mmol/L (22-31) Anion Gap 7 mmol/L (7-16) Urea Nitrogen 23 mg/dL (7-24) Creatinine 0.9 mg/dL (0.6-1.0) BUN/Creat Ratio 25.6 RATIO High (10.0-20.0) Glucose 209 mg/dL High (70-99) Calcium 9.6 mg/dL (8.4-10.2) Total Protein 7.6 g/dL (6.4-8.2) Albumin 4.1 g/dL (3.2-4.5) Globulin 3.5 g/dL (2.7-4.3) Alb/Glob Ratio 1.2 RATIO Alkaline Phosphatase 99 U/L (45-117) Bilirubin,Total 0.3 mg/dL (0.0-1.0) Ast (Sgot) 28 U/L (11-39) Alt (SGPT) 75 U/L (12-78) GFR 66 ml/min/1.73m2 (>59) GFR ( Amer) 80 ml/min/1.73m2 (>59) GFR Interpretation <SEE NOTE> 4 [facility] 11/05/2014 Sodium 138 mmol/L (136-145) Potassium 4.7 mmol/L (3.6-5.2) Chloride 100 mmol/L (100-108) Co2 26 mmol/L (22-31) Anion Gap 12 mmol/L (7-16) Urea Nitrogen 17 mg/dL (7-24) Creatinine 0.7 mg/dL (0.6-1.0) BUN/Creat Ratio 24.3 RATIO High (10.0-20.0) Glucose 249 mg/dL High (70-99) Calcium 8.7 mg/dL (8.4-10.2) Total Protein 8.4 g/dL High (6.4-8.2) Albumin 4.2 g/dL (3.2-4.5) Globulin 4.2 g/dL (2.7-4.3) Alb/Glob Ratio 1.0 RATIO Alkaline Phosphatase 137 U/L High (45-117) Bilirubin,Total 0.3 mg/dL (0.0-1.0) Ast (Sgot) 35 U/L (11-39) Alt (SGPT) 108 U/L High (12-78) GFR 88 ml/min/1.73m2 (>59) GFR ( Amer) >90 ml/min/1.73m2 (>59) GFR Interpretation <SEE NOTE> 5 Hepatitis Profile Acute 11/05/2014 Hepatitis B S Ag @ NEGATIVE (Neg) Hep. B Core Igm @ NEGATIVE (Neg) Hepatitis A AB Igm @ NEGATIVE (Neg) Hepatitis C AB @ NEGATIVE (Neg) 6 CBC With Diff 11/05/2014 WBC 6.1 10*3/uL (4.1-11.0) RBC 3.57 10*6/uL Low (4.00-5.40) HGB 11.5 g/dL Low (12.0-16.0) HCT 34.5 % Low (36.0-47.0) MCV 96.5 fL High (80.0-95.0) MCH 32.1 pg High (27.0-32.0) MCHC 33.3 g/dL (32.0-36.0) RDW 14.8 % High (10.5-14.5) PLT 235 10*3/uL (150-450) MPV 9.6 fL (7.1-10.7) Neut % 60.9 % (35.0-75.0) Lymph % 28.0 % (16.0-52.0) [place] % 7.7 % (0.0-8.0) Eos % 2.7 % (0.0-5.0) Baso % 0.7 % (0.0-4.0) Neut # 3.7 10*3/uL (1.8-7.7) Lymph # 1.7 10*3/uL (1.2-4.8) [place] # 0.5 10*3/uL (0.0-0.8) Eos # 0.2 10*3/uL (0.0-0.5) Baso # 0.0 10*3/uL (0.0-0.2) CMP 10/05/2014 Sodium 138 mmol/L (136-145) Potassium 4.6 mmol/L (3.6-5.2) Chloride 103 mmol/L (100-108) Co2 25 mmol/L (22-31) Anion Gap 10 mmol/L (7-16) Urea Nitrogen 13 mg/dL (7-24) Creatinine 0.9 mg/dL (0.6-1.0) BUN/Creat Ratio 14.4 RATIO (10.0-20.0) Glucose 256 mg/dL High (70-99) Calcium 8.8 mg/dL (8.4-10.2) Total Protein 7.4 g/dL (6.4-8.2) Albumin 3.6 g/dL (3.2-4.5) Globulin 3.8 g/dL (2.7-4.3) Alb/Glob Ratio 0.9 RATIO Alkaline Phosphatase 217 U/L High (45-117) Bilirubin,Total 0.3 mg/dL (0.0-1.0) Ast (Sgot) 90 U/L High (11-39) Alt (SGPT) 177 U/L High (12-78) GFR 66 ml/min/1.73m2 (>59) GFR ( Amer) 80 ml/min/1.73m2 (>59) GFR Interpretation <SEE NOTE> 7 Laboratory test finding 10/05/2014 B Natriuretic Pep 130 pg/mL High (0-100 ) CBC With Diff 10/05/2014 WBC 5.8 10*3/uL (4.1-11.0) RBC 3.24 10*6/uL Low (4.00-5.40) HGB 10.4 g/dL Low (12.0-16.0) HCT 30.2 % Low (36.0-47.0) MCV 93.2 fL (80.0-95.0) MCH 32.2 pg High (27.0-32.0) MCHC 34.6 g/dL (32.0-36.0) RDW 15.7 % High (10.5-14.5) PLT 212 10*3/uL (150-450) MPV 8.7 fL (7.1-10.7) Neut % 58.9 % (35.0-75.0) Lymph % 29.6 % (16.0-52.0) [place] % 9.1 % High (0.0-8.0) Eos % 1.6 % (0.0-5.0) Baso % 0.8 % (0.0-4.0) Neut # 3.4 10*3/uL (1.8-7.7) Lymph # 1.7 10*3/uL (1.2-4.8) [place] # 0.5 10*3/uL (0.0-0.8) Eos # 0.1 10*3/uL (0.0-0.5) Baso # 0.0 10*3/uL (0.0-0.2) Laboratory test finding 08/29/2014 TSH,Ultrasensitive @ 1.510 mIU/L ( 0.360-4.170) 1 NOT INFECTED WITH HCV, UNLESS RECENT INFECTION IS SUSPECTED OR OTHER EVIDENCE EXISTS TO INDICATE HCV INFECTION. 2 NORMAL KIDNEY FUNCTION OR MILD DISEASE - GFR >OR=60 CHRONIC KIDNEY DISEASE - GFR 15 - 59 RENAL FAILURE - GFR <15 Est. GFR calculation based on the MDRD study equation, which assumes a steady state for creatinine. Est. GFR should not be used for medication dosing. 3 SUGGESTED THERAPEUTIC RANGES USING INR FOR STABILIZED ANTICOAGULATED PATIENTS: STANDARD DOSE THERAPY INR 2.0-3.0 DVT, PE, PREVENT DVT OR EMBOLISM HIGH DOSE THERAPY INR 2.5-3.5 PREVENT EMBOLISM FROM MECHANICAL HEART VALVE 4 NORMAL KIDNEY FUNCTION OR MILD DISEASE - GFR >OR=60 CHRONIC KIDNEY DISEASE - GFR 15 - 59 RENAL FAILURE - GFR <15 Est. GFR calculation based on the MDRD study equation, which assumes a steady state for creatinine. Est. GFR should not be used for medication dosing. 5 NORMAL KIDNEY FUNCTION OR MILD DISEASE - GFR >OR=60 CHRONIC KIDNEY DISEASE - GFR 15 - 59 RENAL FAILURE - GFR <15 Est. GFR calculation based on the MDRD study equation, which assumes a steady state for creatinine. Est. GFR should not be used for medication dosing. 6 NOT INFECTED WITH HCV, UNLESS RECENT INFECTION IS SUSPECTED OR OTHER EVIDENCE EXISTS TO INDICATE HCV INFECTION. 7 NORMAL KIDNEY FUNCTION OR MILD DISEASE - GFR >OR=60 CHRONIC KIDNEY DISEASE - GFR 15 - 59 RENAL FAILURE - GFR <15 Est. GFR calculation based on the MDRD study equation, which assumes a steady state for creatinine. Est. GFR should not be used for medication dosing. Procedures Date CPT Code Description Status Comment 03/03/2017 Mammogram Completed Document: 03/03/17 - Screening Mammogram Bilateral 06/27/2015 Bone Mineral Density Test Completed Osteoporosis bilateral hips , Osteopenia spine. 04/12/2015 Mammogram Completed Chun Hager 09/17/16...kaiden pt states she will get one this yr was in hospital when it was originally scheduled 11/05/2014 24424 Spirometry Completed 08/29/2014 35412 Spirometry Completed 02/20/2009 [facility] En[facility] Type Date Location Provider CPT E/M Dx Office Visit 02/15/2017 10:50a Main Office Mo Caal M.D. 75043 J06.9 J44.1 J01.90 Office Visit 01/07/2017 10:30a Main Office Joseodalys Mo Lopez M.D. 85246 J18.9 D64.9 M54.2 Office Visit 11/19/2016 1:20p Main Office Afua Mo Lopez M.D. 50936 J18.9 J44.9 Office Visit 10/29/2016 1:20p Main Office Joseodalys Mo Lopez M.D. 01410 J18.9 J44.1 Office Visit 10/07/2016 11:30a Main Office Afua Mo Lopez M.D. 68396 R53.83 A08.39 E78.00 Office Visit 09/17/2016 11:20a Main Office Afua Mo Lopez M.D. 18685 R10.10 D64.9 R53.83 Office Visit 08/14/2016 2:50p Main Office Mo Caal M.D. 53475 J30.9 J01.90 Office Visit 08/07/2016 11:00a Main Office Afua Mo Lopez M.D. 27317 J18.9 Office Visit 07/14/2016 1:00p Main Office Afua Mo Lopez M.D. 71919 J18.9 D64.9 R60.0 Office Visit 06/25/2016 10:50a Main Office Afua Mo Lopez M.D. 03689 J18.9 J30.9 H69.92 Office Visit 06/04/2016 1:20p Main Office Mo Caal M.D. 17523 J44.1 Office Visit 05/21/2016 2:30p Main Office Afua Mo Lopez M.D. 30591 J06.9 J01.90 Office Visit 05/07/2016 11:00a Main Office Mo Caal M.D. 93299 J18.9 J44.1 Office Visit 04/09/2016 10:30a Main Office Mo Caal M.D. 57227 J06.9 J01.90 J44.1 Office Visit 01/23/2016 10:40a Main Office Mo Caal M.D. 97100 M81.8 S86.111A Office Visit 01/10/2016 10:00a Main Office Mo Caal M.D. 83232 I12.9 R53.83 Z23 Office Visit 10/10/2015 10:00a Main Office Afua Mo Lopez M.D. 41351 R42 Office Visit 09/27/2015 2:20p Main Office Mo Caal M.D. 92797 I12.9 R42 Office Visit 08/21/2015 9:50a Main Office Mo Caal M.D. 54938 F43.23 K58.0 K11.20 Office Visit 07/31/2015 3:20p Main Office Mo Caal M.D. 27743 F43.23 Office Visit 07/10/2015 10:20a Main Office Mo Caal M.D. 97031 R94.5 J44.9 F43.21 Office Visit 05/17/2015 11:20a Main Office Mo Caal M.D. 79880 R05 Office Visit 04/09/2015 1:50p Main Office Mo Caal M.D. 37390 J44.9 J06.9 Office Visit 02/08/2015 2:50p Main Office Mo Caal M.D. 91315 J44.9 Office Visit 01/16/2015 10:20a Main Office Mo Caal M.D. 64128 J44.9 J45.909 Office Visit 12/06/2014 10:30a Main Office Mo Caal M.D. 02773 573.3 496 Office Visit 11/22/2014 1:50p Main Office Mo Caal M.D. 90324 493.92 Office Visit 11/05/2014 11:00a Main Office Mo Caal M.D. 03218 493.90 285.9 573.3 Office Visit 10/05/2014 10:20a Main Office Mo Caal M.D. 05871 486 786.05 787.02 Office Visit 08/29/2014 11:30a Main Office Mo Caal M.D. 21864 493.90 493.90 244.9 244.9 Office Visit 07/31/2014 2:40p Main Office Mo Caal M.D. 49208 461.9 477.9 493.90 Office Visit 07/05/2014 3:00p Main Office Mo Caal M.D. 11626 564.1 564.1 401.1 401.1 244.9 244.9 250.01 250.01 Plan of Care 04/19/2017 - Mo Caal M.D.R19.5 Other fecal abnormalitiesNew Labs:Fecal Fat QualComments:Please collect stool for studies.I12.9 Hypertensive chronic kidney disease w stg 1-4/unsp chr kdnyNew Labs:CMP
[2017-05-02 14:38] VITALS: BP 169/48
--- NOTE | 2017-05-02 14:59 | UC ---
Laceration HPI - HPI Summary HPI Summary: Family dog was playing, partially blind and accidentally bit her right hand. Puncture in the 2nd 3rd webspace and skin tear dorsum of the right hand - History Of Current Complaint Chief Complaint: UCLaceration Stated Complaint: RIGHT HAND LACERATION (DOG BITE) Time Seen by Provider: 05/02/17 14:40 Hx Obtained From: Patient Hx Last Menstrual Period: n/a Laceration Location: Hand Mechanism Of Injury: Sharp Trauma - dog bite Severity: Moderate Aggravating Factors: Movement Hands: 1 - Puncture wound with bruising 2 - skin flap tear with the base distally Related History: Dominant Hand Left - Allergies/Home Medications Allergies/Adverse Reactions: Allergies Allergy/AdvReac Type Severity Reaction Status Date / Time Benzocaine Allergy Mild Rash Verified 05/02/17 14:21 Cefaclor [From Ceclor] Allergy Mild Rash Verified 05/02/17 14:21 Doxycycline Allergy Mild Rash Verified 05/02/17 14:21 Penicillins Allergy Mild Rash Verified 05/02/17 14:21 Codeine AdvReac Mild stomach Verified 05/02/17 14:21 upset Sulfa Drugs AdvReac Mild Diarrhea Verified 05/02/17 14:21 Levofloxacin [From Levaquin] AdvReac See Comment Verified 05/02/17 14:21 Prednisone AdvReac extreme Verified 05/02/17 14:21 hyperglycemia 400s zithromax AdvReac See Comment Uncoded 05/02/17 14:21 Home Medications: Home Medications Furosemide TAB* [Lasix TAB*] 20 mg QAM 05/02/17 [History Confirmed 05/02/17] Losartan TAB* [Cozaar TAB*] 1 tab QAM 05/02/17 [History Confirmed 05/02/17] amLODIPine TAB* [Norvasc 5 mg TAB*] 5 mg QAM 05/02/17 [History Confirmed ] PMH/Surg Hx/FS Hx/Imm Hx Endocrine History: Diabetes, Dyslipidemia Cardiovascular History: Cardiac Disease Respiratory History: COPD - Surgical History Surgical History: Yes Surgery Procedure, Year, and Place: CORONARY BYPASS- QUAD-2009. GALL BLADDER REMOVAL,BLADDER REPAIR. RIGHT leg vascular surgery 2015 - Family History Known Family History: Positive: Cardiac Disease Negative: Diabetes - Social History Occupation: Retired Lives: With Family Alcohol Use: None Substance Use Type: None Substance Use Comment - Amount & Last Used: no narcotics Smoking Status (MU): Never Smoked Tobacco Have You Smoked in the Last Year: No - Immunization History Most Recent Influenza Vaccination: 2017 Most Recent Tetanus Shot: Unknown Most Recent Pneumonia Vaccination: UTD Review of Systems ENT: Sore Throat, Nasal Discharge Is Patient Immunocompromised?: No All Other Systems Reviewed And Are Negative: Yes Physical Exam Triage Information Reviewed: Yes Appearance: Well-Appearing, No Pain Distress, Thin Vital Signs: Initial Vital Signs Temp 97.7 F 05/02/17 14:25 Pulse 65 05/02/17 14:25 Resp 20 05/02/17 14:25 BP 169/48 05/02/17 14:25 Pulse Ox 100 05/02/17 14:25 Vital Signs Reviewed: Yes Eyes: Positive: Conjunctiva Clear Neck exam: Normal Respiratory Exam: Normal Cardiovascular Exam: Normal Musculoskeletal Exam: Normal Neurological Exam: Normal Psychological Exam: Normal Skin: Positive: Other - Bite wound right hand Laceration Repair - Laceration Repair 1 Description: Irregular - flap over the right dorsal hand Laceration Size After Repair: Length (cm) - 3.6 cm Modified For Repair: No Cleansing Completed Via Routine Prep: No Irrigation With Pressure Irrigation Device: No Closure Material: Skin Adhesive Laceration Course/Dx - Differential Dx - Laceration/Wound Differental Diagnoses: Bite Injury, Laceration, Puncture Wound Provider Diagnoses: Dog bite. Open wound right hand. Discharge - Discharge Plan Condition: Stable Disposition: HOME Prescriptions: Clindamycin HCl [Clindamycin 150 MG CAP*] 150 mg PO QID #12 cap Patient Education Materials: Animal Bite (ED), Skin Adhesive Care (ED), Clindamycin (By mouth) Referrals: No Primary Care Phys,NOPCP [Primary Care Provider] -
[2017-05-02] MEDS ORDERED: Tetan/Diph/Pertus SYR(Tdap)* 0.5 ML SYR(BOOSTRIX) use SYR IM ONE (15:29)
== END 2017-05-02 15:37 | disposition home or self-care (01) ==
LOC: UCCORT 12:13
DX: S61.451A Open bite of right hand, initial encounter (principal); W54.0XXA Bitten by dog, initial encounter; Y93.89 Activity, other specified; Y92.9 Unspecified place or not applicable; Z23 Encounter for immunization; J02.9 Acute pharyngitis, unspecified; R09.81 Nasal congestion; E11.9 Type 2 diabetes mellitus without complications; E78.5 Hyperlipidemia, unspecified; I51.9 Heart disease, unspecified; J44.9 Chronic obstructive pulmonary disease, unspecified; Z95.1 Presence of aortocoronary bypass graft; Z90.49 Acquired absence of other specified parts of digestive tract; Z88.1 Allergy status to other antibiotic agents; Z88.5 Allergy status to narcotic agent; Z88.0 Allergy status to penicillin; Z88.2 Allergy status to sulfonamides; Z88.8 Allergy status to other drugs, medicaments and biological substances
CPT/HCPCS: 12002; 12032; 90471; 90715; 99212; G0463

== ENCOUNTER 2017-10-07 11:13 | Emergency (ER) | payer MEDICARE, BC ==
--- OUTSIDE RECORDS SUMMARY | 2017-10-07 12:13 | XMS REPORT ---
:1945 External Reference #:[id number] Author Organization [facility] Address [address] [place] [address] Phone [phone] Care Team Providers Name Role Phone Mo Caal M.D. 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 Active Onset: 09/27/2017 Essential hypertension Mo Caal M.D. Active Family History Date [...] Recreational Drug Use Never Used Drugs Smoking 07/13/2017 Patient has never smoked Daily Caffeine Consumes [...] Active Tablets ER 500mg 30tab Take One Afua Sodium ER 24HR s Tablet By Mo Jaramillo Every M.D. Day AT Bedtime Losartan 01/09 Active Tablets 100mg 1 by mouth R05 Afua, Potassium every day Mo Lopez M.D. Levetiracetam 01/09 Active Tablets 750mg 60tab Take One s Tablet By Mo Jaramillo Twice M.D. A Day Metoprolol 10/29 Active Tablets 25mg 90tab 1/2 by mouth Alley, Tartrate s onnce day Mo Lopez M.D. Escitalopram 08/20 Active Tablets 5mg 30tab Take One F43.23 , Oxalate s Tablet By Mo Lopez Mouth Every M.D. Day Incruse Ellipta 04/09 Active Aerosol 62.5mcg/I 30uni Inhale One J44.9 nh ts puff By Nima. Mouth Every M.D. Day Advair Diskus 01/16 Active Aerosol 500-50mcg 60uni Inhale One /Dose ts puff By NimaShai Mouth Twice M.D. A Day , Rinse And Spit After Use Zofran 10/05 Active Tablets 4mg 20tab take one 787.02 s tablet by Mo Lopez mouth every M.D. 6 hours as needed for nausea and vomiting Freestyle Lite 07/31 Active Strip 200un Test 6 Times , Test its Per Day Mo Lopez M.D. Aspir-[address] 81mg 1 by mouth Unknown /0000 every day Vitamin D3 Active Capsules 1000Unit 1 by mouth Unknown /0000 every day Tums Ultra 1000 Active Chewtabs 1000mg one table by Unknown /0000 mouth every 4 hours as needed. Humalog Active Solution 100Unit/M sliding Unknown /0000 Cartridge L scale as needed Primidone Active Tablets 50mg 30tab Take 1 Alley, s Tablet By Mo Lopez Mouth AT M.D. Night Amlodipine Active Tablets 10mg 1/2 by mouth Unknown Besylate 0000 every day Ferrous Sulfate Active Tablets 325(65Fe) 30tab Take One y, mg s Tablet By Mo Lopez Mouth Every M.D. Day Ranitidine HCL Active Capsules 150mg 60cap Take One Alley, s Capsule By Nima. Mouth Twice M.D. A Day Levothyroxine Active Tablets 112mcg 1 by mouth Unknown Sodium / every day Prednisone 07/13 Hx Tablets 20mg 18tab 3 tab by J44.1 s mouth every Nima. - day for 3 M.D. 07/22 days then by mouth daily for 3 days then 1 by mouth daily for 3 days Cefuroxime 07/13 Hx Tablets 500mg 14tab 1 by mouth J44.1 Afua s twice a day Mo Agee M.D. 07/20 Azithromycin 06/18 Hx Tablets 250mg 6tabs 2 tab by J44.1 mouth day 1 Nima. - then 1 by M.DShai 06/23 mouth daily day 2-5 Prednisone 06/14 Hx Tablets 20mg 18tab 3 tab by J44.1 s mouth every Nima. - day for 3 M.D. 06/23 days then by mouth daily for 3 days then 1 by mouth daily for 3 days Cefdinir 06/14 Hx Capsules 300mg 20cap 1 by mouth J44.1 s twice a day Mo Agee M.D. 06/18 Cefdinir 02/24 Hx Capsules 300mg 20cap 1 by mouth J01.90 s twice a day Mo Agee M.D. 04/19 Clarithromycin 02/22 Hx Tablets 500mg 20tab 1 cap by J01.90 s mouth twice Nima. - a day M.D. 02/24 Cefuroxime 02/15 Hx Tablets 500mg 20tab 1 by mouth J01.90 s twice a [...] 1 by mouth mg every day Mo gAee M.D. 08/07 Zetia 08/07 Hx Tablets 10mg 90tab 1 by mouth s every day Mo Agee M.D. 10/07 Cefdinir 07/06 Hx Capsules 300mg 14cap 1 by mouth s twice a day Mo Agee M.D. 07/13 Ezetimibe 06/25 Hx Tablets 10mg 30tab 1 by mouth s every day Mo Agee M.D. 04/19 Cefdinir 06/04 Hx Capsules 300mg 20cap 1 by mouth J44.1 s twice a day Mo Agee M.D. 06/14 Prednisone 06/04 Hx Tablets 20mg 18tab 3 tab by J44.1 s mouth every for 3 M.D. 06/13 days then by mouth daily for 3 days then 1 by mouth daily for 3 days Clindamycin HCL 05/25 Hx Capsules 150mg 40cap 1 by mouth J01.90 s four times a ady M.D. 06/04 Cefdinir 05/21 Hx Capsules 300mg 20cap 1 by mouth Arianna01.90 s twice a day Mo Agee M.D. 05/25 Atorvastatin 05/07 Hx Tablets 10mg 90tab 1 by mouth Afua, s every day Mo Agee M.D. 06/25 Forteo 04/09 Hx Solution 600mcg/2. 1 injection 4ML daily 20 mcg Mo Agee M.D. 04/19 Clindamycin HCL 04/09 Hx Capsules 150mg 40cap 1 by mouth J01.90 s four times a Nima. - day M.D. 04/19 Prednisone 04/09 Hx Tablets 20mg 18tab 3 tab by J44.1 s mouth every Nima. - day for 3 M.D. 04/18 days then by mouth daily for 3 days then 1 by mouth daily for 3 days Metoprolol 10/21 Hx Tablets ER 25mg 45tab 1/2 tab by Afua, Succinate ER 24HR s mouth every Nima. - day M.D. 10/29 Levothyroxine 08/12 Hx Tablets 100mcg 30tab Take One , s Tablet By Nima. - Mouth Every M.D. Escitalopram 07/30 Hx Tablets 10mg 30tab 1/2 by mouth F43.23 s every day Nima. - M.D. 08/20 Losartan 05/17 Hx Tablets 50mg 30tab 1 by mouth R05 , s every Nima. - evening M.D. 01/09 Prednisone 12/22 Hx Tablets 20mg 18tab 3 tab by s mouth every Nima. - day for 3 M.D. 12/31 days then by mouth daily for 3 days then 1 by mouth daily for 3 days Cefdinir 12/22 Hx Capsules 300mg 20cap 1 by mouth s twice a day Nima. - M.D. 01/01 Prednisone 11/22 Hx Tablets 20mg [...] 1 by mouth 486 s every day Nima. - M.D. 10/05 Cefdinir 10/05 Hx Capsules 300mg 20cap 1 by mouth 486 s twice a day Mo Agee M.D. 10/15 Albuterol 08/29 Hx Nebulizer (2.5mg/3M 75ml 1 unit via Afua, L) 0.083% nebulizer Mo Lopez - aristides 4 M.Jurgen 07/09 hours needed Advair Diskus 08/29 Hx Aerosol 250-50mcg 60uni 1 puff twice Afua, /2014 /Dose ts a day Mo Agee M.D. 01/16 Advair Diskus 07/31 Hx Aerosol 500-50mcg 1unit 1 puff twice Afua, /Dose s a day Mo Agee M.D. 08/29 Metoprolol 07/05 Hx Tablets ER 12.5mg 90tab 1 by mouth Afua, Succinate 24HR s every day Mo Agee M.D. 10/[address] 500mg 30tab 1 tabs by Afua, Sodium /0000 s mouth every Mo Lopez - shabnam Broussard.Jurgen 01/12 Synthroid Hx Tablets 100mcg 30tab 1 by mouth Afua, / s every day Mo Agee M.D. 08/12 Ramipril Hx Capsules 2.5mg 1 by mouth R05 Unknown /0000 every day - 05/17 Cholestyramine Hx Packet 4gm 1/2 Pack Unknown /0000 Every Other - Day 10/05 Levetiracetam Hx Tablets 500mg 1 by mouth Unknown /0000 twice a day - 01/09 Tymlos 00 Hx Solution 3120mcg/1 once daily Unknown /0000 Pen-Inject .56ML as directed - 06/14 Align 0000 Hx Capsules 4mg 1 by mouth Unknown /0000 every day - 06/14 Medications Administered in Office Medication Date Status Form Strength Qnty SIG Indications Ordering Provider Administer Administered Injection Mo Caal Influenza 016 A. M.DShai Virus Vaccine Immunizations CPT Code Status Date Vaccine Lot # 52478 Given 01/13/2017 Influenza Vaccine Split Virus Preservative Free [place] 78325 Given 01/10/2016 Influenza Vaccine Split Virus Preservative Free Im [id number] Use 31221 Given 01/05/2015 Influenza Virus Vaccine, Quadrivalent, Split Virus, Im Use 3 &Up Vital Signs Date Vital Result Comment 09/27/2017 Weight 97.12 lb BP Systolic 100 mmHg BP Diastolic 50 mmHg Body Temperature 97.6 F Height 66.0 inches 5'6" BMI (Body Mass Index) 15.7 kg/m2 07/13/2017 Weight 99.12 lb BP Systolic 110 mmHg BP Diastolic 60 mmHg Body Temperature 98.2 F Height 66.0 inches 5'6" BMI (Body Mass Index) 16.0 kg/m2 06/14/2017 Weight 98.12 lb BP Systolic 120 mmHg BP Diastolic 50 mmHg Body Temperature 97.9 F Height 66.0 inches 5'6" BMI (Body Mass Index) 15.8 kg/m2 04/19/2017 Weight 95.38 lb BP Systolic 160 [...] Test Date Test Result H/L Range Note CMP 04/19/2017 Sodium 140 mmol/L (136-145) Potassium 4.3 mmol/L (3.6-5.2) Chloride 105 mmol/L (100-108) Co2 29 mmol/L (22-31) Anion Gap 6 mmol/L Low (7-16) Urea Nitrogen 23 mg/dL (7-24) Creatinine 0.89 mg/dL (0.60-1.00) BUN/Creat Ratio 25.8 RATIO High (10.0-20.0) Glucose 104 mg/dL High (70-99) Calcium 9.8 mg/dL (8.4-10.2) Total Protein 8.2 g/dL (6.4-8.2) Albumin 4.2 g/dL (3.2-4.5) Globulin 4.0 g/dL (2.7-4.3) Alb/Glob Ratio 1.1 RATIO Alkaline Phosphatase 186 U/L High (45-117) Bilirubin,Total 0.2 mg/dL (0.0-1.0) Ast (Sgot) 95 U/L High (11-39) Alt (SGPT) 148 U/L High (12-78) GFR >60 ml/min/1.73m2 (>59) GFR ( Amer) >60 ml/min/1.73m2 (>59) GFR Interpretation <SEE NOTE> 1 Laboratory test finding 03/01/2017 Hemoglobin A1c 7.9 [...] % (35.0-75.0) Lymph % 20.4 % (16.0-52.0) [place] % 8.9 % High (0.0-8.0) Eos % 3.9 % (0.0-5.0) Baso % 0.6 % (0.0-4.0) Neut # 4.3 10*3/uL (1.8-7.7) Lymph # 1.3 10*3/uL (1.2-4.8) [place] # 0.6 10*3/uL (0.0-0.8) Eos # 0.2 10*3/uL (0.0-0.5) Baso # 0.0 10*3/uL (0.0-0.2) Lipid Panel 09/17/2016 Cholesterol Total 212 200-239 [place]lie High Density Lipoprotein 110 >40 LDL Low Density Lipoprotein 88 Triglycerides 70 <150 BMP W/Egfr 09/17/2016 Calcium 9.5 Creatinine 0.9 Sodium 131 Low 136-145 Carbon Dioxide 27 Glucose Serum 144 High 74-106 Chloride 99 Potassium 5.1 GFR (Calculated) >60 Laboratory test finding 09/17/2016 CK Creatine Kinase 57 Laboratory test finding 09/17/2016 Lipase 52 Low 73-393 Liver - Hepatic Panel 09/17/2016 Albumin 3.9 Bilirubin Total 0.3 Alkaline Phosphatase 132 High 45-117 Ast-Sgot 20 Alt-SGPT 26 Protein Total 8.9 CBC With Auto Diff 09/17/2016 White Blood [...] Neutrophils 7.5 High 1.8-7 Laboratory test finding 09/17/2016 CRP C-Reactive Protein 4.9 High <3 Laboratory test finding 10/10/2015 Vitamin B12 @ [...] (Neg) Hepatitis C AB @ NEGATIVE (Neg) 2 Basic Metabolic Panel 12/19/2014 Sodium 133 mmol/L [...] >90 ml/min/1.73m2 (>59) GFR Interpretation <SEE NOTE> 3 CBC With Diff 12/19/2014 WBC 6.1 10*3/uL (4.1-11.0) RBC 3.04 10*6/uL Low (4.00-5.40) HGB 10.2 g/dL Low (12.0-16.0) HCT 29.2 % Low (36.0-47.0) MCV 96.3 fL High (80.0-95.0) MCH 33.5 pg High (27.0-32.0) MCHC 34.8 g/dL (32.0-36.0) RDW 12.7 % (10.5-14.5) PLT 224 10*3/uL (150-450) MPV 8.6 fL (7.1-10.7) Neut % 55.8 % (35.0-75.0) Lymph % 28.4 % (16.0-52.0) [place] % 10.9 % High (0.0-8.0) Eos % 3.8 % (0.0-5.0) Baso % 1.1 % (0.0-4.0) Neut # 3.4 10*3/uL (1.8-7.7) Lymph # 1.7 10*3/uL (1.2-4.8) [place] # 0.7 10*3/uL (0.0-0.8) Eos # 0.2 10*3/uL (0.0-0.5) Baso # 0.1 10*3/uL (0.0-0.2) Protime 12/19/2014 PT 10.0 s (9.2-11.9) Inr 0.94 4 Activated Partial Thromboplasin Time 12/19/2014 Aptt 23.6 s (22.0-32.6) CMP 12/06/2014 Sodium 137 mmol/L (136-145) Potassium [...] 80 ml/min/1.73m2 (>59) GFR Interpretation <SEE NOTE> 5 CMP 11/05/2014 Sodium 138 mmol/L (136-145) Potassium 4.7 [...] >90 ml/min/1.73m2 (>59) GFR Interpretation <SEE NOTE> 6 Hepatitis Profile Acute 11/05/2014 Hepatitis B S Ag @ NEGATIVE (Neg) Hep. B Core Igm @ NEGATIVE (Neg) Hepatitis A AB Igm @ NEGATIVE (Neg) Hepatitis C AB @ NEGATIVE (Neg) 7 CBC With Diff 11/05/2014 WBC 6.1 10*3/uL (4.1-11.0) RBC 3.57 10*6/uL Low (4.00-5.40) HGB 11.5 g/dL Low (12.0-16.0) HCT 34.5 % Low (36.0-47.0) MCV 96.5 fL High (80.0-95.0) MCH 32.1 pg High (27.0-32.0) MCHC 33.3 g/dL (32.0-36.0) RDW 14.8 % High (10.5-14.5) PLT 235 10*3/uL (150-450) MPV 9.6 fL (7.1-10.7) Neut % 60.9 % (35.0-75.0) Lymph % 28.0 % (16.0-52.0) [place] % 7.7 % (0.0-8.0) Eos % 2.7 % (0.0-5.0) Baso % 0.7 % (0.0-4.0) Neut # 3.7 10*3/uL (1.8-7.7) Lymph # 1.7 10*3/uL (1.2-4.8) [place] # 0.5 10*3/uL (0.0-0.8) Eos # 0.2 10*3/uL (0.0-0.5) Baso # 0.0 10*3/uL (0.0-0.2) CBC With Diff 10/05/2014 WBC 5.8 10*3/uL (4.1-11.0) RBC 3.24 10*6/uL Low (4.00-5.40) HGB 10.4 g/dL Low (12.0-16.0) HCT 30.2 % Low (36.0-47.0) MCV 93.2 fL (80.0-95.0) MCH 32.2 pg High (27.0-32.0) MCHC 34.6 g/dL (32.0-36.0) RDW 15.7 % High (10.5-14.5) PLT 212 10*3/uL (150-450) MPV 8.7 fL (7.1-10.7) Neut % 58.9 % (35.0-75.0) Lymph % 29.6 % (16.0-52.0) [place] % 9.1 % High (0.0-8.0) Eos % 1.6 % (0.0-5.0) Baso % 0.8 % (0.0-4.0) Neut # 3.4 10*3/uL (1.8-7.7) Lymph # 1.7 10*3/uL (1.2-4.8) [place] # 0.5 10*3/uL (0.0-0.8) Eos # 0.1 [...] 80 ml/min/1.73m2 (>59) GFR Interpretation <SEE NOTE> 8 Laboratory test 10/05/2014 B Natriuretic Pep 130 pg/mL High (0-100) finding Laboratory test 08/29/2014 TSH,Ultrasensitive @ 1.510 mIU/L (0.360-4.170 ) finding 1 NORMAL KIDNEY FUNCTION OR MILD DISEASE - GFR >OR=60 CHRONIC KIDNEY DISEASE - GFR 15 - 59 RENAL FAILURE - GFR <15 Est. GFR calculation based on the MDRD study equation, which assumes a steady state for creatinine. Est. GFR should not be used for medication dosing. 2 NOT INFECTED WITH HCV, UNLESS RECENT INFECTION IS SUSPECTED OR OTHER EVIDENCE EXISTS TO INDICATE HCV INFECTION. 3 NORMAL KIDNEY FUNCTION OR MILD DISEASE - GFR >OR=60 CHRONIC KIDNEY DISEASE - GFR 15 - 59 RENAL FAILURE - GFR <15 Est. GFR calculation based on the MDRD study equation, which assumes a steady state for creatinine. Est. GFR should not be used for medication dosing. 4 SUGGESTED THERAPEUTIC RANGES USING INR FOR STABILIZED ANTICOAGULATED PATIENTS: STANDARD DOSE THERAPY INR 2.0-3.0 DVT, PE, PREVENT DVT OR EMBOLISM HIGH DOSE THERAPY INR 2.5-3.5 PREVENT EMBOLISM FROM MECHANICAL HEART VALVE 5 NORMAL KIDNEY FUNCTION OR MILD DISEASE - GFR >OR=60 CHRONIC KIDNEY DISEASE - GFR 15 - 59 RENAL FAILURE - GFR <15 Est. GFR calculation based on the MDRD study equation, which assumes a steady state for creatinine. Est. GFR should not be used for medication dosing. 6 NORMAL KIDNEY FUNCTION OR MILD DISEASE - GFR >OR=60 CHRONIC KIDNEY DISEASE - GFR 15 - 59 RENAL FAILURE - GFR <15 Est. GFR calculation based on the MDRD study equation, which assumes a steady state for creatinine. Est. GFR should not be used for medication dosing. 7 NOT INFECTED WITH HCV, UNLESS RECENT INFECTION IS SUSPECTED OR OTHER EVIDENCE EXISTS TO INDICATE HCV INFECTION. 8 NORMAL KIDNEY FUNCTION OR MILD DISEASE - [...] Osteopenia spine. 04/12/2015 Mammogram Completed Chun Hager 09/17/16...js pt states she will get one this yr was in hospital when it was originally scheduled 11/05/2014 21424 Spirometry Completed 08/29/2014 07036 Spirometry Completed 02/20/2009 [facility] En[facility] Type Date Location Provider CPT E/M Dx Office Visit 07/13/2017 2:50p Main Office Mo Caal M.D. 08451 J44.1 J06.9 Office Visit 06/14/2017 4:30p Main Office Mo Caal M.D. 90624 J06.9 J44.1 Office Visit 04/19/2017 3:00p Main Office Mo Caal M.D. 15838 R19.5 I12.9 Office Visit 02/15/2017 10:50a Main Office Mo Caal M.D. 58017 J06.9 J44.1 J01.90 Office Visit 01/07/2017 10:30a Main Office Mo Caal M.D. 03450 J18.9 D64.9 M54.2 Office Visit 11/19/2016 1:20p Main Office Mo Caal M.D. 74520 J18.9 J44.9 Office Visit 10/29/2016 1:20p Main Office Mo Caal M.D. 11423 J18.9 J44.1 Office Visit 10/07/2016 11:30a Main Office Mo Caal M.D. 69914 R53.83 A08.39 E78.00 Office Visit 09/17/2016 11:20a Main Office Mo Caal M.D. 07512 R10.10 D64.9 R53.83 Office Visit 08/14/2016 2:50p Main Office Mo Caal M.D. 06567 J30.9 J01.90 Office Visit 08/07/2016 11:00a Main Office Mo Caal M.D. 88535 J18.9 Office Visit 07/14/2016 1:00p Main Office Mo Caal M.D. 45019 J18.9 D64.9 R60.0 Office Visit 06/25/2016 10:50a Main Office Mo Caal M.D. 64770 J18.9 J30.9 H69.92 Office Visit 06/04/2016 1:20p Main Office Mo Caal M.D. 91063 J44.1 Office Visit 05/21/2016 2:30p Main Office Mo Caal M.D. 44365 J06.9 J01.90 Office Visit 05/07/2016 11:00a Main Office Mo Caal M.D. 79309 J18.9 J44.1 Office Visit 04/09/2016 10:30a Main Office Mo Caal M.D. 61554 J06.9 J01.90 J44.1 Office Visit 01/23/2016 10:40a Main Office Mo Caal M.D. 47701 M81.8 S86.111A Office Visit 01/10/2016 10:00a Main Office Mo Caal M.D. 68610 I12.9 R53.83 Z23 Office Visit 10/10/2015 10:00a Main Office Mo Caal M.D. 77852 R42 Office Visit 09/27/2015 2:20p Main Office Mo Caal M.D. 84472 I12.9 R42 Office Visit 08/21/2015 9:50a Main Office Mo Caal M.D. 02575 F43.23 K58.0 K11.20 Office Visit 07/31/2015 3:20p Main Office Mo Caal M.D. 62428 F43.23 Office Visit 07/10/2015 10:20a Main Office Mo Caal M.D. 51105 R94.5 J44.9 F43.21 Office Visit 05/17/2015 11:20a Main Office Mo Caal M.D. 38142 R05 Office Visit 04/09/2015 1:50p Main Office Mo Caal M.D. 45727 J44.9 J06.9 Office Visit 02/08/2015 2:50p Main Office Mo Caal M.D. 37924 J44.9 Office Visit 01/16/2015 10:20a Main Office Mo Caal M.D. 19435 J44.9 J45.909 Office Visit 12/06/2014 10:30a Main Office Mo Caal M.D. 39186 573.3 496 Office Visit 11/22/2014 1:50p Main Office Mo Caal M.D. 77686 493.92 Office Visit 11/05/2014 11:00a Main Office Mo Caal M.D. 59442 493.90 285.9 573.3 Office Visit 10/05/2014 10:20a Main Office Mo Caal M.D. 70598 486 786.05 787.02 Office Visit 08/29/2014 11:30a Main Office Mo Caal M.D. 01364 493.90 493.90 244.9 244.9 Office Visit 07/31/2014 2:40p Main Office Mo Caal M.D. 62006 461.9 477.9 493.90 Office Visit 07/05/2014 3:00p Main Office Mo Caal M.D. 29569 564.1 564.1 401.1 401.1 244.9 244.9 250.01 250.01 Plan of Care 09/27/2017 - Mo Caal M.D.I10 Essential (primary) hypertensionFollow up:4 months.E10.40 Type 1 diabetes mellitus with diabetic neuropathy, unsp
[2017-10-07 12:22] VITALS: BP 143/52
--- NOTE | 2017-10-07 12:28 | UC ---
Back Pain HPI - HPI Summary HPI Summary: 72 yo female presents with low back pain s/p fall last night. She tells me that she returned home and her two dogs (labs) ran at her excited that she was home and she fell backwards onto her buttocks and lower back. Did not hit her head or have LOC. Was able to ambulate immediately after, but had pain. This morning is still having "tailbone" pain that is worst when trying to go from a seated to a standing position. Denies numbness, tingling, saddle anesthesia, loss of urinary/bowel control. - History of Current Complaint Chief Complaint: UCTrauma Stated Complaint: TAILBONE PAIN S/P FALL Time Seen by Provider: 10/07/17 12:24 Hx Obtained From: Patient Hx Last Menstrual Period: n/a Onset/Duration: Sudden Onset Severity Initially: Moderate Severity Currently: Moderate Pain Intensity: 6 Pain Scale Used: 0-10 Numeric Aggravating Factor(s): Movement, Bending - Allergies/Home Medications Allergies/Adverse Reactions: Allergies Allergy/AdvReac Type Severity Reaction Status Date / Time cefaclor [From Ceclor] Allergy Intermediate Rash Verified 10/07/17 12:28 doxycycline Allergy Intermediate Rash Verified 10/07/17 12:28 Penicillins Allergy Intermediate Rash Verified 10/07/17 12:30 benzocaine Allergy Mild Rash Verified 10/07/17 12:26 prednisone AdvReac Severe severe Verified 10/07/17 12:28 hypoglycemia levofloxacin [From Levaquin] AdvReac See Comment Verified 10/07/17 12:26 Sulfa (Sulfonamide AdvReac Diarrhea Verified 10/07/17 12:26 Antibiotics) prednisone AdvReac Intermediate severe Uncoded 10/07/17 12:31 hypoglycemia zithromax AdvReac See Comment Uncoded 05/02/17 14:21 PMH/Surg Hx/FS Hx/Imm Hx Endocrine History: Diabetes, Hypothyroidism Cardiovascular History: Cardiac Disease, Hypertension Respiratory History: COPD GI/ History: Gastroesophageal Reflux Neurological History: Seizures - Surgical History Surgical History: Yes Surgery Procedure, Year, and Place: CORONARY BYPASS- QUAD-2009. GALL BLADDER REMOVAL,BLADDER REPAIR. RIGHT leg vascular surgery 2014 - Family History Known Family History: Positive: Cardiac Disease Negative: Diabetes - Social History Alcohol Use: None Substance Use Type: None Substance Use Comment - Amount & Last Used: no narcotics Smoking Status (MU): Never Smoked Tobacco Have You Smoked in the Last Year: No - Immunization History Most Recent Influenza Vaccination: 2017 Most Recent Tetanus Shot: Unknown Most Recent Pneumonia Vaccination: UTD Review of Systems Constitutional: Negative Skin: Negative Respiratory: Negative Cardiovascular: Negative Gastrointestinal: Negative Genitourinary: Negative Neurovascular: Negative Musculoskeletal: Other: - Low back pain Neurological: Negative Psychological: Negative All Other Systems Reviewed And Are Negative: Yes Physical Exam - Summary Physical Exam Summary: GENERAL: NAD. WDWN. No pain distress. SKIN: No rashes, sores, lesions, or open wounds. NECK: Supple. FROM. Nontender. No lymphadenopathy. CHEST: No accessory muscle use. Breathing comfortably and in no distress. CV: Pulses intact. Brisk cap refill. MSK: TTP over lumbar paraspinal muscles, but most tender over coccyx. Pain with flexion and extension of spine. Strength 5/5 B/L LEs and symmetric including dorsiflexion and plantar flexion. FROM B/L LEs. No edema. NEURO: Alert. CN II-XII grossly intact. Sensations intact B/L LEs L3-S1. PSYCH: Age appropriate behavior. Triage Information Reviewed: Yes Vital Signs: Initial Vital Signs Temp 98.6 F 10/07/17 12:17 Pulse 65 10/07/17 12:17 Resp 16 10/07/17 12:17 BP 143/52 10/07/17 12:17 Pulse Ox 100 10/07/17 12:17 Back Pain Course/Dx - Course Course Of Treatment: XR: IMPRESSION: NO ACUTE BONY FINDINGS. Suspect contusion due to fall. Advised to rest, ice, and heat - may take tylenol for pain. F/u if not better. - Differential Dx/Diagnosis Provider Diagnoses: Fall - low back pain Discharge - Sign-Out/Discharge Documenting (check all that apply): Discharge/Admit/Transfer - Discharge Plan Condition: Stable Disposition: HOME Patient Education Materials: Contusion in Adults (ED) Referrals: Mo Caal MD [Primary Care Provider] - Additional Instructions: If you develop a fever, shortness of breath, chest pain, new or worsening symptoms - please call your PCP or go to the ED. Your blood pressure was mildly elevated at todays visit. Please see your primary provider within 4 weeks for recheck and re-evaluation. 1) Rest and apply ice or heat to the area. This injury may take several days to improve. 2) If your pain worsens or lasts longer than 1 week - please follow up with your PCP - Billing Disposition and Condition Condition: STABLE Disposition: Home
--- NOTE | 2017-10-07 12:47 | RAD ---
INDICATION: Fall. Back pain COMPARISON: Abdomen November 05, 2014 TECHNIQUE: Routine PA, lateral, and oblique imaging was performed . FINDINGS: Bones: There are no acute bony findings. There are no significant osteoarthritic findings. Alignment: Normal Disc spaces: The disc spaces are well-maintained Soft tissues: There are extensive aortic calcifications with biiliac stenting, unchanged. IMPRESSION: NO ACUTE BONY FINDINGS.
== END 2017-10-07 13:07 | disposition home or self-care (01) ==
LOC: UCCORT 11:13
DX: M54.5 Low back pain (principal); W19.XXXA Unspecified fall, initial encounter; Y93.89 Activity, other specified; Y92.009 Unspecified place in unspecified non-institutional (private) residence as the place of occurrence of the external cause; Z88.4 Allergy status to anesthetic agent; Z88.1 Allergy status to other antibiotic agents; Z88.0 Allergy status to penicillin; Z88.2 Allergy status to sulfonamides; Z88.8 Allergy status to other drugs, medicaments and biological substances; I10 Essential (primary) hypertension
CPT/HCPCS: 72110; 99211; G0463

== ENCOUNTER 2017-12-05 11:26 | Emergency (ER) | payer MEDICARE, BC ==
[2017-12-05 11:47] VITALS: BP 139/40
--- NOTE | 2017-12-05 12:16 | UC ---
Respiratory Complaint HPI - HPI Summary HPI Summary: Patient is 72 year old female , with past medical history significant for COPD, high blood pressure, diabetes and seizure disorder, coronary artery disease status post quadruple bypass who present today with coughing up phlegm for past 1 week. Productive cough with green/yellow secretions that clear as day progresses. Denies any fever or chills , but concerned for pneumonia or bronchitis. No sick contacts . No skin rash. Denies any chest pain or shortness of breath . No diaphoresis. Denies any abdominal pain , nausea or vomiting , diarrhea or constipation. She has not had any treatment so far. - History of Current Complaint Chief Complaint: UCRespiratory Stated Complaint: BREATHING COMPLAINT Time Seen by Provider: 12/05/17 11:56 Hx Obtained From: Patient Hx Last Menstrual Period: n/a Onset/Duration: Gradual Onset Timing: Constant Severity Initially: Mild Severity Currently: Moderate Pain Intensity: 0 - Allergies/Home Medications Allergies/Adverse Reactions: Allergies Allergy/AdvReac Type Severity Reaction Status Date / Time cefaclor [From Ceclor] Allergy Intermediate Rash Verified 12/05/17 11:38 doxycycline Allergy Intermediate Rash Verified 12/05/17 11:38 Penicillins Allergy Intermediate Rash Verified 12/05/17 11:38 benzocaine Allergy Mild Rash Verified 12/05/17 11:38 prednisone AdvReac Severe See Comment Verified 12/05/17 11:38 levofloxacin [From Levaquin] AdvReac See Comment Verified 12/05/17 11:38 Sulfa (Sulfonamide AdvReac Diarrhea Verified 12/05/17 11:38 Antibiotics) zithromax AdvReac See Comment Uncoded 12/05/17 11:38 Home Medications: Home Medications Ascorbic Acid TAB* [Vitamin C TAB*] 500 mg PO DAILY 12/05/17 [History Confirmed 12/05/17] Umeclidin 62.5 MDI(NF) [Incruse ELLIPTA MDI (NF)] 2 inh INH DAILY 12/05/17 [ History Confirmed 12/05/17] PMH/Surg Hx/FS Hx/Imm Hx Previously Healthy: Yes Endocrine History: Diabetes Other Endocrine History: negative Cardiovascular History: Hypertension, Other - Coronary artery disease status post quadruple bypass Other Cardiovascular History: negative Respiratory History: COPD Other Respiratory History: negative Other GI/ History: negative Neurological History: Seizures Other Psychological History: negative Other Cancer History: negative - Surgical History Surgical History: Yes Surgery Procedure, Year, and Place: CORONARY BYPASS- QUAD-2009. GALL BLADDER REMOVAL,BLADDER REPAIR. RIGHT leg vascular surgery 2015 - Family History Known Family History: Positive: Cardiac Disease Negative: Diabetes - Social History Alcohol Use: None Substance Use Type: None Substance Use Comment - Amount & Last Used: no narcotics Smoking Status (MU): Never Smoked Tobacco Have You Smoked in the Last Year: No - Immunization History Most Recent Influenza Vaccination: 2017 Most Recent Tetanus Shot: Unknown Most Recent Pneumonia Vaccination: UTD Review of Systems Constitutional: Fatigue Skin: Negative Eyes: Negative ENT: Negative Respiratory: Shortness Of Breath, Cough - Productive of yellowish-green phlegm Cardiovascular: Negative Gastrointestinal: Negative Genitourinary: Negative Motor: Negative Neurovascular: Negative Musculoskeletal: Negative Neurological: Negative Psychological: Negative Is Patient Immunocompromised?: No All Other Systems Reviewed And Are Negative: Yes Physical Exam - Summary Physical Exam Summary: Physical Exam: Const: Appears well. No signs of apparent distress present. Alert and oriented x 3. Musculo: Walks with a normal gait. Head/Face: Atraumatic, normocephalic on inspection. Eyes: EOMI and PERRLA in both eyes. Conjunctivae clear. ENT: Hearing normal, TM not visualized as there is cerumen Respiratory: Respirations are unlabored. Lungs clear to auscultation bilaterally in upper lung de la cruz and there is notable rhonchi and some crepitations noted in bilateral lower lung de la cruz CVS: Regular rate and Rhythm, S1S2 normal , no murmurs identified. Extremities: Peripheral circulation is grossly normal. Pulses 2+ Abdomen : Soft non tender , nondistended , Bowel sounds present . No guarding , rebound tenderness or rigidity noted. Skin: No lesions or rash located on the upper extremities or on the lower extremities. Neuro: Cranial nerves II to XII intact, motor and sensory intact. DTR Intact bilaterally. Mood is normal. Affect is normal. Triage Information Reviewed: Yes Vital Signs: Initial Vital Signs Temp 98 F 12/05/17 11:43 Pulse 65 12/05/17 11:43 Resp 18 12/05/17 11:43 BP 139/40 12/05/17 11:43 Pulse Ox 100 12/05/17 11:43 Vital Signs Reviewed: Yes UC Diagnostic Evaluation - Laboratory O2 Sat by Pulse Oximetry: 100 - Radiology Xray Interpretation: No Acute Changes - Chest xray Radiology Interpretation Completed By: Radiologist Respiratory Course/Dx - Course Course Of Treatment: During the visit today, we obtained a chest x-ray which was consistent with COPD without any acute cardiopulmonary process(as per the final report) . She had a duoneb nebulizer treatment 1 with improvement in her shortness of breath. Repeat lung exam had improved after the nebulizer treatment. We discussed the findings and further plan. She has taken azithromycin in the past and has tolerated it well. Plan to start her on azithromycin to cover for atypical pneumonia. Plan to held off the steroids due to her blood sugar reaching high levels when the steroid use in the past . I will prescribe the medication to the pharmacy . Patient expressed understanding . - Differential Dx/Diagnosis Provider Diagnoses: COPD. Atypical pneumonia Discharge - Sign-Out/Discharge Documenting (check all that apply): Patient Departure All imaging exams completed and their final reports reviewed: Yes - chest xray - Discharge Plan Condition: Stable Disposition: HOME Prescriptions: Azithromycin TAB* [Zithromax TAB (Z-SHARAN) 250 mg #6 tabs] 2 tab PO .TODAY, THEN 1 DAILY #1 sharan Patient Education Materials: COPD (Chronic Obstructive Pulmonary Disease) (ED) Referrals: Mo Caal MD [Primary Care Provider] - 2 Days Additional Instructions: Please start taking the medication as prescribed to the pharmacy . Follow up with your primary care doctor in 2 days. Patients blood pressure slightly high in Urgent care today , plan follow up with PCP for better control Return to Urgent care / ER if symptoms get worse. - Billing Disposition and Condition Condition: STABLE Disposition: Home
[2017-12-05] MEDS ORDERED: Albuterol/Ipratropium NEB.SOL* Albuterol 2.5 MG/Ipratropium 0.5 MG 3 ML INH ONE (12:23)
--- NOTE | 2017-12-05 12:52 | RAD ---
INDICATION: Shortness of breath and productive cough COMPARISON: Most recent comparison chest x-rays dated June 04, 2016 TECHNIQUE: PA and lateral views of the chest were obtained. FINDINGS: Unchanged from the prior radiograph are sternotomy wires and surgical clips overlying the midline mediastinum. The heart and mediastinum are normal in size and contour. The lungs appear hyperaerated. There is no focal or lobar density. The costophrenic angles are adequately defined bilaterally. Visualized bones are normal for the patient's age. There is no radiographic evidence of free air beneath the diaphragm IMPRESSION: CHEST X-RAY APPEARANCE IS CONSISTENT WITH CHRONIC OBSTRUCTIVE PULMONARY DISEASE, SIMILAR IN APPEARANCE TO THE PREVIOUS CHEST X-RAY, WITHOUT RADIOGRAPHICALLY APPARENT ACUTE CARDIOPULMONARY ABNORMALITY.
== END 2017-12-05 13:18 | disposition home or self-care (01) ==
LOC: UCCORT 11:26
DX: J44.9 Chronic obstructive pulmonary disease, unspecified (principal); J18.9 Pneumonia, unspecified organism; E11.9 Type 2 diabetes mellitus without complications; G40.909 Epilepsy, unspecified, not intractable, without status epilepticus; I25.10 Atherosclerotic heart disease of native coronary artery without angina pectoris; Z95.1 Presence of aortocoronary bypass graft; Z88.2 Allergy status to sulfonamides; Z88.8 Allergy status to other drugs, medicaments and biological substances; Z88.4 Allergy status to anesthetic agent; Z88.0 Allergy status to penicillin; Z88.3 Allergy status to other anti-infective agents
CPT/HCPCS: 71046; 99212; A9270-GY; G0463

== ENCOUNTER 2018-08-08 14:58 | Emergency (ER) | payer MEDICARE, BC ==
--- NOTE | 2018-08-08 15:07 | UC ---
Respiratory Complaint HPI - HPI Summary HPI Summary: 72 yo female presents with fatigue, body aches, and feeling increased SOB for the last 3 days. She had a decreased appetite 2-3 days ago, but this has improved and she has eaten well today. She mentions that her recently got out of the hospital for PNA. Pt states she has a hx of COPD and gets exacerbations at times, she does have a nebulizer at home, but admits that she has not been using it. She denies fever, sinus symptoms, sore throat, chest pain , abdominal pain. - History of Current Complaint Stated Complaint: HAS COPD,TROUBLE BREATHING Time Seen by Provider: 08/08/18 15:06 Hx Obtained From: Patient Hx Last Menstrual Period: n/a Onset/Duration: Gradual Onset Timing: Constant Severity Currently: None Pain Scale Used: 0-10 Numeric - Allergies/Home Medications Allergies/Adverse Reactions: Allergies Allergy/AdvReac Type Severity Reaction Status Date / Time cefaclor [From Ceclor] Allergy Intermediate Rash Verified 08/08/18 15:11 doxycycline Allergy Intermediate Rash Verified 08/08/18 15:11 Penicillins Allergy Intermediate Rash Verified 08/08/18 15:11 benzocaine Allergy Mild Rash Verified 08/08/18 15:11 prednisone AdvReac Severe See Comment Verified 08/08/18 15:11 levofloxacin [From Levaquin] AdvReac See Comment Verified 08/08/18 15:11 Sulfa (Sulfonamide AdvReac Diarrhea Verified 08/08/18 15:11 Antibiotics) zithromax AdvReac See Comment Uncoded 08/08/18 15:11 Home Medications: Home Medications Alirocumab [Praluent] 75 mg SC SEE INSTRUCTIONS 08/08/18 [History Confirmed ] Escitalopram * [Lexapro 5 mg (NF)] 5 mg PO DAILY 08/08/18 [History Confirmed ] Levothyroxine TAB* [Synthroid TAB*] 112 mcg PO DAILY 08/08/18 [History Confirmed 08/08/18] Multivitamins/Minerals TAB* [Theragran/minerals TAB*] 1 tab PO DAILY 08/08/18 [ History Confirmed 08/08/18] Primidone TAB(*) [Mysoline TAB(*)] 50 mg PO BEDTIME 08/08/18 [History Confirmed 08/08/18] PMH/Surg Hx/FS Hx/Imm Hx Endocrine History: Diabetes, Hypothyroidism Cardiovascular History: Cardiac Disease, Hypertension Respiratory History: COPD Neurological History: Seizures - Surgical History Surgical History: Yes Surgery Procedure, Year, and Place: CORONARY BYPASS- QUAD-2009. GALL BLADDER REMOVAL,BLADDER REPAIR. RIGHT leg vascular surgery 2014 - Family History Known Family History: Positive: Cardiac Disease Negative: Diabetes - Social History Occupation: Retired Lives: With Family Alcohol Use: None Substance Use Type: None Substance Use Comment - Amount & Last Used: no narcotics Smoking Status (MU): Never Smoked Tobacco Have You Smoked in the Last Year: No - Immunization History Most Recent Influenza Vaccination: 2017 Most Recent Tetanus Shot: Unknown Most Recent Pneumonia Vaccination: UTD Review of Systems All Other Systems Reviewed And Are Negative: Yes Constitutional: Positive: Fatigue, Other - Body aches Skin: Positive: Negative Eyes: Positive: Negative ENT: Positive: Negative Respiratory: Positive: Shortness Of Breath, Cough Cardiovascular: Positive: Negative Neurovascular: Positive: Negative Neurological: Positive: Negative Psychological: Positive: Negative Physical Exam - Summary Physical Exam Summary: GENERAL: NAD. SKIN: No rashes, sores, lesions, or open wounds. HEENT: Head: AT/NC Eyes: Conjunctiva clear without inflammation or discharge. Ears: Hearing grossly normal. TMs intact, no bulging, erythema, or edema. Nose: Nasal mucosa pink and moist. NTTP maxillary and frontal sinus. Throat: Posterior oropharynx without exudates, erythema, or tonsillar enlargement. Uvula midline. NECK: Supple. Nontender. No lymphadenopathy. CHEST: Mild wheezing throughout with decreased breath sounds. No r/r. No accessory muscle use. Breathing comfortably and in no distress. CV: RRR. Pulses intact. Cap refill <2seconds NEURO: Alert. PSYCH: Age appropriate behavior. Triage Information Reviewed: Yes Vital Signs: Vital Signs: Temp Pulse Resp BP Pulse Ox 98.1 F 68 24 156/55 100 08/08/18 15:07 08/08/18 15:07 08/08/18 15:07 08/08/18 15:07 08/08/18 15:07 Vital Signs Reviewed: Yes Respiratory Course/Dx - Course Course Of Treatment: CXR: IMPRESSION: FINDINGS CONSISTENT WITH COPD, NO EVIDENCE FOR ACUTE FINDING. POC flu negative. Duoeb: Pt experienced improvement and stated "feels easier to breathe". Lung sounds improved s/p with less wheezing. Suspect COPD exacerbation. She has a listed adverse reaction to prednisone, that it causes her glucose levels to increase. She says that she has taken prednisone in the past for COPD exacerbations, but she calls her community assistant to inform their office and has her insulin dosing adjusted - I encouraged her to do this in the morning. She also tells me that her PCP is very involved in her care, thus I strongly encouraged her to call his office in the morning and inform him of her visit at the today and new acute medications, in case he wishes to make any changes. Pt voiced understanding and is agreeable to the plan. - Differential Dx/Diagnosis Provider Diagnosis: COPD exacerbation Discharge - Sign-Out/Discharge Documenting (check all that apply): Patient Departure All imaging exams completed and their final reports reviewed: Yes - Discharge Plan Condition: Stable Disposition: HOME Prescriptions: Albuterol 2.5MG/3ML (0.083%)* [Ventolin 2.5 MG/3 ML NEB.WANG*] 2.5 mg INH Q6H PRN #30 neb.wang PRN Reason: Sob/Wheezing Clindamycin HCl 150 mg PO TID #21 capsule Ipratropium 0.5MG/2.5ML NEB* [Atrovent 0.5 MG NEB.WANG*] 0.5 mg INH Q6H PRN #30 neb.soln PRN Reason: Sob/Wheezing predniSONE TAB* [Deltasone 20 MG TAB*] 20 mg PO DAILY #7 tab Patient Education Materials: COPD (Chronic Obstructive Pulmonary Disease) (ED) Referrals: Mo Caal MD [Primary Care Provider] - Additional Instructions: If you develop a fever, shortness of breath, chest pain, new or worsening symptoms - please call your PCP or go to the ED immediately. Your blood pressure was slightly elevated at todays visit. Please see your primary provider within 4 weeks for recheck and re-evaluation. 1) Please call your community assistant in the morning and inform them that you have a prescription for prednisone 20mg to take once a day - they may want to adjust your insulin dosing. 2) Please call your Primary Doctor in the morning and discuss your visit here today with him. Inform him of the new medications and see if he wishes to make any changes. 3) I strongly suggest you schedule an appointment with your primary doctor for a recheck of your symptoms later this week. - Billing Disposition and Condition Condition: STABLE Disposition: Home - Attestation Statements Provider Attestation: Per institutional requirements, I have reviewed the chart, however, I was not consulted specifically or made aware of this patient by the midlevel provider. I did not personally evaluate, interact with , or disposition this patient.
[2018-08-08 15:12] VITALS: BP 156/55
[2018-08-08] MEDS ORDERED: Albuterol/Ipratropium NEB.SOL* Albuterol 2.5 MG/Ipratropium 0.5 MG 3 ML INH ONE (15:18)
[2018-08-08 15:37] LABS: Influenza A Molecular NEGATIVE (Negative); Influenza B Molecular NEGATIVE (Negative)
== END 2018-08-08 16:13 | disposition home or self-care (01) ==
LOC: UCCORT 14:58
DX: J44.1 Chronic obstructive pulmonary disease with (acute) exacerbation (principal); E11.9 Type 2 diabetes mellitus without complications; I10 Essential (primary) hypertension; E03.9 Hypothyroidism, unspecified; Z79.899 Other long term (current) drug therapy; Z79.890 Hormone replacement therapy; Z88.1 Allergy status to other antibiotic agents; Z88.2 Allergy status to sulfonamides; Z88.8 Allergy status to other drugs, medicaments and biological substances
CPT/HCPCS: 71046; 99212; A9270-GY; G0463

== ENCOUNTER 2018-11-28 17:26 | Emergency (ER) | payer MEDICARE, BC ==
--- OUTSIDE RECORDS SUMMARY | 2018-11-28 18:14 | XMS REPORT | Continuity of Care Document ---
:1945 External Reference #:[id number] Author Name Mo Caal M.D. Address [address] [place] [address] Care Team Providers Name Role Phone Mo Caal M.D. 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 Onset: 07/05/2014 Benign essential hypertension Mo Caal M.D. Onset: 07/05/2014 Hypothyroidism Mo Caal M.D. Onset: 07/05/2014 Type 1 diabetes mellitus Mo Caal M.D. Onset: 07/05/2014 Coronary atherosclerosis Mo Caal M.D. Onset: 07/19/2014 Chronic obstructive lung disease Mo Caal M.D. Onset: 12/06/2014 Chronic obstructive lung disease Mo Caal M.D. Onset: 01/16/2015 Diabetic retinopathy Mo Caal M.D. Onset: 05/17/2015 Absence seizure Mo Caal M.D. Onset: 07/31/2015 Osteoporosis Mo Caal M.D. Onset: 08/04/2015 Essential hypertension Mo Caal M.D. Onset: 09/27/2017 Social History Type Date Description Comments Sex Unknown Tobacco Use Start: Unknown Never Smoked Cigarettes ETOH Use Denies alcohol use Tobacco Use Reviewed: 11/17/18 Patient has never smoked Recreational Drug Use Never Used Drugs Smoking Status Reviewed: 11/17/18 Patient has never smoked Enjoy Exercising 01/07/2017 Enjoys exercising ONE day a week. Tattoo/Piercing Pierced ears Sun Exposure 01/07/2017 Does not use sunscreen Teaching done to use 30 or more sunscreen. Seat Belt/Car Seat Always uses seat belt Smoke Alarms Yes Allergies, Adverse Reactions, Alerts Active Allergies Reaction Severity Comments Date Penicillin Rash 07/05/2014 Ceclor 07/05/2014 Doxycycline 07/05/2014 Sulfa Antibiotics Stomach 07/05/2014 Benzocaine Severe Rash 07/05/2014 Codeine Stomach 07/05/2014 Erythromycin Stomach Pain 07/05/2014 Zithromax per endocrineologist 11/05/2014 Crow Inhibitors cough Mild 07/10/2015 Levaquin weakness 07/14/2016 Medications Active Medications SIG Qnty Indications Ordering Date Provider Prednisone 3 by mouth daily 24tabs J44.1 Mo Caal 11/17/2018 20mg Tablets for 4 days, 2 by M.D. mouth daily for 4 days then 1 by mouth daily for 4 days Doxycycline Hyclate 1 by mouth twice 20caps J44.1 Mo Caal 2018 a day M.D. 100mg Capsules Ventolin HFA 2 puffs every 4 18gm J44.1 Mo Caal 06/07/2018 hours as needed M.D. 108(90Base) mcg/Act Aerosol Vitamin B-12 1 tab by mouth 30tabs Mo Caal 06/07/2018 3000mcg every day M.D. Tablets Sub Furosemide 1 by mouth every Mo Caal 01/07/2017 20mg Tablets day M.D. Vitamin C Take One Tablet 30tabs D64.9 Mo Caal 07/14/2016 500mg Tablets By Mouth Every M.D. Day With Iron Divalproex Sodium ER Take One Tablet 30tabs Mo Caal 01/13/2016 By Mouth Every M.D. 500mg Tablets ER 24HR Day AT Bedtime Losartan Potassium 1 by mouth every R05 Mo Caal 01/10/2016 day M.D. 100mg Tablets Levetiracetam Take One Tablet 60tabs Mo Caal 01/10/2016 750mg By Mouth Twice A M.D. Tablets Day Metoprolol Tartrate Take 1/2 Tablet 30tabs Mo Caal 10/30/2015 By Mouth Two M.D. 25mg Tablets Times A Day Escitalopram Oxalate Take One Tablet 30tabs F43.23 Mo Caal 2015 By Mouth Every M.D. 5mg Tablets Day Incruse Ellipta Inhale One puff 30units J44.9 Mo Caal 04/09/2015 By Mouth Every M.D. 62.5mcg/Inh Aerosol Day Advair Diskus Inhale One puff 60units Mo Caal 01/16/2015 By Mouth Twice A M.D. 500-50mcg/Dose Day , Rinse And Aerosol Spit After Use Zofran take one tablet 60tabs R11.0 Mo Caal 10/05/2014 4mg Tablets by mouth every 8 M.D. hours as needed for nausea and vomiting Freestyle Lite Test test 6 times per 200units Ki Gaitan 07/31/2014 day Debora Frey Strip Praluent 1 injection every Unknown 75mg/ml 2 weeks Solution Pen-Inject Primidone Take 1 Tablet By 30tabs Mo Caal 50mg Tablets Mouth AT Night M.D. Levothyroxine Sodium 1 by mouth every Unknown day 112mcg Tablets Ranitidine HCL Take One Capsule 60caps Mo Caal 150mg By Mouth Twice A M.D. Capsules Day Ferrous Sulfate Take One Tablet 30tabs Mo Caal By Mouth Every M.D. 325(65Fe) mg Tablets Day Amlodipine Besylate 1/2 by mouth Unknown every day 10mg Tablets Humalog sliding scale as Unknown 100Unit/ML needed Solution Cartridge SpineAlign Medical Ultra 1000 one table by Unknown 1000mg mouth every 4 Chewtabs hours as needed. Vitamin D3 1 by mouth every Unknown 1000Unit day Capsules Aspir-81 1 by mouth every Unknown 81mg Tablets day DR History Medications Prednisone 3 tab by mouth 18tabs J44.1 Mo Caal 09/22/2018 - 20mg Tablets every day for M.D. 10/01/2018 3 days then 2 by mouth daily for 3 days then 1 by mouth daily for 3 days Cefdinir 1 by mouth 20caps J01.90 Mo CaalShai 09/22/2018 - 300mg Capsules twice a day M.D. 10/02/2018 Clindamycin HCL 1 by mouth 28caps J44.1 Mo CaalShai 08/12/2018 - 150mg four times a M.D. 08/18/2018 Capsules day Prednisone 1 tab by mouth 7tabs J44.1 Mo CaalShai 08/12/2018 - 20mg Tablets every day M.D. 08/18/2018 Nitrofurantoin 1 by mouth 14caps N30.00 Mo CaalShai 06/23/2018 - Macrocrystal twice a day M.D. 06/30/2018 100mg Capsules Cefdinir 1 by mouth 20caps J44.1 Mo CaalShai 06/07/2018 - 300mg Capsules twice a day M.D. 06/17/2018 Prednisone 3 tab by mouth 18tabs J44.1 Mo CaalShai 06/07/2018 - 20mg Tablets every day for M.D. 06/16/2018 3 days then 2 by mouth daily for 3 days then 1 by mouth daily for 3 days Medications Administered in Office Medication SIG Qnty Indications Ordering Provider Date Administer Influenza Virus Mo Caal M.D. 12/28/2017 Vaccine Injection Administer Influenza Virus Mo Caal M.D. 01/10/2016 Vaccine Injection Immunizations CPT Code Status Date Vaccine Lot # [id number] Given 12/28/2017 Influenza Vaccine Split Virus Preservative Free Im [id number] Use 30937 Given 01/13/2017 Influenza Vaccine Split Virus Preservative Free [place] Use 68105 Given 01/10/2016 Influenza Vaccine Split Virus Preservative Free Im [id number] Use 10029 Given 01/05/2015 Influenza Virus Vaccine, Quadrivalent, Split Virus, Im Use 3 &Up Vital Signs Date Vital Result Comment 11/17/2018 2:02pm Weight 99.50 lb BP Systolic 130 mmHg BP Diastolic 70 mmHg Body Temperature 97.5 F Height 66.0 inches 5'6" BMI (Body Mass Index) 16.1 kg/m2 09/22/2018 2:47pm Weight 100.00 lb BP Systolic 130 mmHg BP Diastolic 56 mmHg Body Temperature 97.3 F Height 66.0 inches 5'6" Heart Rate 72 /min Respiratory Rate 20 /min O2 % BldC Oximetry 97 % BMI (Body Mass Index) 16.1 kg/m2 Results Test Date Facility Test Result H/L Range Note Laboratory test 06/23/2018 [facility] Urine Culture SPECIMEN 1 finding DESCRIP <SEE NOTE> 1 SPECIMEN DESCRIPTION URINE, COLLECTION METHOD NOT SPECIFIED CULTURE RESULTS >100,000 CFU/ML ESCHERICHIA COLI REPORT STATUS FINAL 06/25/2018 ORGANISM ESCHERICHIA COLI METHOD JOANNA AMIKACIN <=2 SUSCEPTIBLE AMOXICILLIN/CLAVULANIC AC <=2/1 SUSCEPTIBLE AMPICILLIN <=2 SUSCEPTIBLE ISOLATES SUSCEPTIBLE TO AMPICILLIN ARE ALSO SUSCEPTIBLE TO AMOXICILLIN. CEFAZOLIN <=4 SUSCEPTIBLE FOR UNCOMPLICATED UTI'S,CEFAZOLIN JOANNA RESULTS LESS THAN OR EQUAL TO 16 MCG/ML PREDICT SUSCEPTIBILITY OF THE FOLLOWING ORAL CEPHALOSPORINS:CEFACLOR,CEFDINIR, CEFPODOXIME,CEFPROZIL,CEFUROXIME AND CEPHALEXIN. IMPORTANT NOTE FOR COMPLICATED INFECTIONS SUCH UROSEPSIS CEFAZOLIN SHOULD HAVE A JOANNA OF LESS THAN OR EQUAL TO 2 TO BE CONSIDERED SUSCEPTIBLE. CONTACT MICROBIOLOGY FOR FURTHER TESTING IF WARRANTED. CEFEPIME <=1 SUSCEPTIBLE CEFOXITIN <=4 SUSCEPTIBLE CEFTAZIDIME <=1 SUSCEPTIBLE CEFTRIAXONE <=1 SUSCEPTIBLE CIPROFLOXACIN <=0.25 SUSCEPTIBLE GENTAMICIN <=1 SUSCEPTIBLE LEVOFLOXACIN <=0.12 SUSCEPTIBLE MEROPENEM <=0.25 SUSCEPTIBLE NITROFURANTOIN <=16 SUSCEPTIBLE PIPERACILLIN/TAZOBACTAM <=4 SUSCEPTIBLE TETRACYCLINE <=1 SUSCEPTIBLE TOBRAMYCIN <=1 SUSCEPTIBLE TRIMETH/SULFA <=1/19 SUSCEPTIBLE ERTAPENEM <=0.5 SUSCEPTIBLE Procedures Date Code Description Status 06/07/2018 25060 Oximetry Single Determination Completed 05/31/2018 42824262 Mammogram Completed 06/27/2015 095060351 Bone Mineral Density Test Completed 02/20/2009 [id number] Colonoscopy Completed Medical Devices Description No Information Available Encounters Type Date Location Provider Dx Diagnosis Office Visit 09/22/2018 Main Office Mo Caal44.1 Chronic obstructive 2:50p M.D. pulmonary disease w (acute) exacerbation J01.90 Acute sinusitis, unspecified Office Visit 08/12/2018 1:00p Main Office Mo Caal44.1 Chronic obstructive M.D. pulmonary disease w (acute) exacerbation Office Visit 06/23/2018 11:40a Main Office Mo Caal N30.00 Acute cystitis M.D. without hematuria Office Visit 06/07/2018 2:40p Main Office Mo Caal J44.1 Chronic obstructive M.D. pulmonary disease w (acute) exacerbation Office Visit 05/30/2018 1:00p Main Office Mo Caal I10 Essential ( primary) M.D. hypertension L65.0 Telogen effluvium Assessments Date Code Description Provider 11/17/2018 J44.1 Chronic obstructive pulmonary disease with Mo Caal M.D. (acute) exacerbat 09/22/2018 J44.1 Chronic obstructive pulmonary disease with Mo Caal M.D. (acute) exacerbat 09/22/2018 J01.90 Acute sinusitis, unspecified Mo Caal M.D. 08/12/2018 J44.1 Chronic obstructive pulmonary disease with Mo Caal M.D. (acute) exacerbat 06/23/2018 N30.00 Acute cystitis without hematuria Mo Caal M.D. 06/07/2018 J44.1 Chronic obstructive pulmonary disease with Mo Caal M.D. (acute) exacerbat 05/30/2018 I10 Essential (primary) hypertension Mo Caal M.D. 05/30/2018 L65.0 Telogen effluvium Mo Caal M.D. Plan of Treatment 11/17/2018 - Mo Caal M.D.J44.1 Chronic obstructive pulmonary disease with (acute) exacerbatNew Medication:Prednisone 20 mg - 3 by mouth daily for 4 days, 2 by mouth daily for 4 days then 1 by mouth daily for 4 daysDoxycycline Hyclate 100 mg - 1 by mouth twice a dayComments:Prednisone can cause insomnia. If you break out into an itchy rash or bloody diarrhea, stop the antibiotics immediately and call the office.Follow up:As needed. Functional Status Functional Condition Comment Date Status Glasses Active Mental Status Description No Information Available Referrals Description No Information Available
[2018-11-28 18:39] VITALS: BP 155/60
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
== END 2018-11-28 19:46 | disposition home or self-care (01) ==
LOC: UCCORT 17:26
DX: S81.812A Laceration without foreign body, left lower leg, initial encounter (principal); V98.8XXA Other specified transport accidents, initial encounter; Y92.096 Garden or yard of other non-institutional residence as the place of occurrence of the external cause; E10.9 Type 1 diabetes mellitus without complications; Z95.1 Presence of aortocoronary bypass graft; Z88.4 Allergy status to anesthetic agent; Z88.1 Allergy status to other antibiotic agents; Z88.0 Allergy status to penicillin; Z88.2 Allergy status to sulfonamides; Z88.8 Allergy status to other drugs, medicaments and biological substances
CPT/HCPCS: 99213; G0463

== ENCOUNTER 2018-12-17 10:55 | Emergency (ER) | payer MEDICARE, BC ==
[2018-12-17 12:18] VITALS: BP 166/43
--- NOTE | 2018-12-17 12:45 | UC ---
Complaint Female HPI - HPI Summary HPI Summary: Pt presents with c/o sudden onset of urinary urgency, frequency, and dysuria X 1 day. Pt is a type 1 diabetic. - History Of Current Complaint Chief Complaint: UCGU Stated Complaint: URINARY Time Seen by Provider: 12/17/18 12:25 Hx Obtained From: Patient Hx Last Menstrual Period: n/a ?: No Onset/Duration: Sudden Onset, Still Present Timing: Constant Severity Initially: Mild Severity Currently: Mild Pain Intensity: 0 Character: Dull, Burning Aggravating Factor(s): Urination Alleviating Factor(s): Nothing Associated Signs And Symptoms: Positive: Negative - Risk Factors Ectopic Risk Factor: Negative - Allergies/Home Medications Allergies/Adverse Reactions: Allergies Allergy/AdvReac Type Severity Reaction Status Date / Time cefaclor [From Ceclor] Allergy Intermediate Rash Verified 12/17/18 12:11 Penicillins Allergy Intermediate Rash Verified 12/17/18 12:11 benzocaine Allergy Mild Rash Verified 12/17/18 12:11 prednisone AdvReac Severe high Verified 12/17/18 12:11 glucose doxycycline AdvReac Intermediate GI Upset Verified 12/17/18 12:11 levofloxacin [From Levaquin] AdvReac total body Verified 12/17/18 12:11 weakness, could not walk Sulfa (Sulfonamide AdvReac Diarrhea Verified 12/17/18 12:11 Antibiotics) zithromax AdvReac See Comment Uncoded 12/17/18 12:11 PMH/Surg Hx/FS Hx/Imm Hx Previously Healthy: Yes Endocrine History: Diabetes, Dyslipidemia Cardiovascular History: Cardiac Disease, Hypertension - Surgical History Surgical History: Yes Surgery Procedure, Year, and Place: CORONARY BYPASS- QUAD-2008. GALL BLADDER REMOVAL,BLADDER REPAIR. RIGHT leg vascular surgery 2014 - Family History Known Family History: Positive: Cardiac Disease Negative: Diabetes - Social History Occupation: Retired Lives: With Family Alcohol Use: None Substance Use Type: None Substance Use Comment - Amount & Last Used: no narcotics Smoking Status (MU): Never Smoked Tobacco Have You Smoked in the Last Year: No - Immunization History Most Recent Influenza Vaccination: 2016 Most Recent Tetanus Shot: 05/02/17 Most Recent Pneumonia Vaccination: UTD Vaccination Up to Date: Yes Review of Systems All Other Systems Reviewed And Are Negative: Yes Constitutional: Positive: Negative Skin: Positive: Negative Eyes: Positive: Negative ENT: Positive: Negative Respiratory: Positive: Negative Cardiovascular: Positive: Negative Gastrointestinal: Positive: Negative Genitourinary: Positive: Dysuria, Frequency, Urgency Motor: Positive: Negative Neurovascular: Positive: Negative Musculoskeletal: Positive: Negative Neurological: Positive: Negative Psychological: Positive: Negative Is Patient Immunocompromised?: No Physical Exam Triage Information Reviewed: Yes Appearance: Well-Appearing Vital Signs: Initial Vital Signs Temp 97.9 F 12/17/18 12:15 Pulse 61 12/17/18 12:15 Resp 18 12/17/18 12:15 BP 166/43 12/17/18 12:15 Pulse Ox 100 12/17/18 12:15 Vital Signs Reviewed: Yes Eye Exam: Normal ENT Exam: Normal Dental Exam: Normal Neck exam: Normal Respiratory Exam: Normal Cardiovascular Exam: Normal Musculoskeletal Exam: Normal Neurological Exam: Normal Psychological Exam: Normal Skin Exam: Normal Complaint Female Dx - Differential Dx/Diagnosis Differential Diagnosis/HQI/PQRI: Urinary Tract Infection Provider Diagnosis: UTI (urinary tract infection) Discharge ED - Sign-Out/Discharge Documenting (check all that apply): Patient Departure All imaging exams completed and their final reports reviewed: No Studies - Discharge Plan Condition: Stable Disposition: HOME Prescriptions: Nitrofurantoin Monohyd/M-Cryst [Macrobid 100 mg Capsule] 100 mg PO Q12H #14 cap Patient Education Materials: Urinary Tract Infection in Women (ED) Referrals: Mo Caal MD [Primary Care Provider] - If Needed - Billing Disposition and Condition Condition: STABLE Disposition: Home
== END 2018-12-17 13:01 | disposition home or self-care (01) ==
LOC: UCCORT 10:55
DX: N39.0 Urinary tract infection, site not specified (principal); Z88.0 Allergy status to penicillin; Z88.1 Allergy status to other antibiotic agents; Z88.2 Allergy status to sulfonamides; E11.9 Type 2 diabetes mellitus without complications; I10 Essential (primary) hypertension; Z95.1 Presence of aortocoronary bypass graft
CPT/HCPCS: 81002; 81003; 87077; 87086; 87186; 99212; G0463

== ENCOUNTER 2019-04-30 09:38 | Emergency (ER) | payer MEDICARE, BC ==
--- OUTSIDE RECORDS SUMMARY | 2019-04-30 10:54 | XMS REPORT | Continuity of Care Document ---
:1945 External Reference #:[id number] Author Name Mo Caal M.D. (transmitted by agent of provider Celeste rCuz) Address [address] [place] [address] Care Team Providers Name Role Phone Mo Caal M.D. 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 mouth daily for 4 days then 1 by mouth daily for 4 days Doxycycline Hyclate 1 by mouth twice 20caps J44.1 Mo Caal 2019 a day with zofran M.D. 100mg Capsules Levetiracetam 1 tab by mouth 90tabs Mo Caal 02/16/2019 500mg every day M.D. Tablets Ventolin HFA 2 puffs every 4 18gm J44.1 Mo Caal 06/07/2018 hours as needed M.D. 108(90Base) mcg/Act Aerosol Vitamin B-12 2 tabs once 30tabs Mo Caal 06/07/2018 3000mcg weekly M.D. Tablets Sub Furosemide 1 by mouth every Mo Caal 01/07/2017 20mg Tablets day M.D. Divalproex Sodium ER Take One Tablet 30tabs Mo Caal 01/13/2016 By Mouth Every M.D. 500mg Tablets ER 24HR Day AT Bedtime Losartan Potassium 1 by mouth every R05 Mo Caal 01/10/2016 day M.D. 100mg Tablets Metoprolol Tartrate take 1/2 tablet 30tabs Mo Caal 10/30/2015 once daily M.D. 25mg Tablets Escitalopram Oxalate Take One Tablet 30tabs F43.23 [...] for nausea and vomiting Freestyle Lite Test Use To Test 6 200units Ki Gaitan 07/31/2014 Times A Day Debora Frey Strip Praluent 1 injection every Unknown 75mg/ml 2 weeks Solution Pen-Inject Primidone Take 1 Tablet By 30tabs Mo Caal 50mg Tablets Mouth AT Night M.D. Levothyroxine Sodium 1 by mouth every Unknown day 112mcg Tablets Amlodipine Besylate 1/2 by mouth Unknown every day 10mg Tablets Humalog sliding scale as Unknown 100Unit/ML needed Solution Cartridge Tums Ultra 1000 one table by Unknown 1000mg mouth every 4 Chewtabs hours as needed. Vitamin D3 1 by mouth every Unknown 1000Unit day Capsules Aspir-81 1 by mouth every Unknown 81mg Tablets day DR History Medications Doxycycline Hyclate 2 caps by mouth 2caps Mo Caal 03/14/2019 - 100mg once with M.D. 03/17/2019 Capsules zofran Levetiracetam ER 1 tab by mouth 90tabs Mo Caal 02/15/2019 - 500mg every day M.D. 02/16/2019 Tablets ER 24HR Clindamycin HCL 1 by mouth four 40caps J32.2 Mo Caal 01/24/2019 - 150mg times a day M.D. 02/03/2019 Capsules Prednisone 3 by mouth 24tabs J44.1 Mo CaalShai 01/12/2019 - 20mg Tablets daily for 4 M.D. 01/24/2019 days, 2 by mouth daily for 4 days then 1 by mouth daily for 4 days Doxycycline Hyclate 1 by mouth 20caps J44.1 Mo CaalShai 01/12/2019 - 100mg twice a day M.D. 01/22/2019 Capsules with zofran Levetiracetam ER 1 tab by mouth 90tabs Mo CaalShai 12/21/2018 - 750mg every day M.D. 02/15/2019 Tablets ER 24HR Prednisone 3 by mouth 24tabs J44.1 Mo CaalShai 11/17/2018 - 20mg Tablets daily for 4 M.D. 11/29/2018 days, 2 by mouth daily for 4 days then 1 by mouth daily for 4 days Doxycycline Hyclate 1 by mouth 20caps J44.1 Mo CaalShai 11/17/2018 - 100mg twice a day M.D. 11/27/2018 Capsules Medications Administered in Office Medication SIG Qnty Indications Ordering Provider Date Administer Influenza Virus Mo Caal M.D. 12/28/2017 Vaccine Injection Administer Influenza Virus Mo Caal M.D. 01/10/2016 Vaccine Injection Immunizations CPT Code Status Date Vaccine Lot # [id number] Given 12/28/2017 Influenza Vaccine Split Virus Preservative Free Im [id number] Use 66922 Given 01/13/2017 Influenza Vaccine Split Virus Preservative Free Im Use 87939 Given 01/10/2016 Influenza Vaccine Split Virus Preservative Free Im [id number] Use 12913 Given 01/05/2015 Influenza Virus Vaccine, Quadrivalent, Split Virus, Im Use 3 &Up Vital Signs Date Vital Result Comment 04/14/2019 11:38am Weight 100.00 lb BP Systolic 160 mmHg BP Diastolic 54 mmHg Body Temperature 98.1 F Height 66.0 inches 5'6" Heart Rate 62 /min O2 % BldC Oximetry 96 % BMI (Body Mass Index) 16.1 kg/m2 02/14/2019 10:35am Weight 101.00 lb BP Systolic 160 mmHg BP Diastolic 50 mmHg Body Temperature 98.8 F Height 66.0 inches 5'6" BMI (Body Mass Index) 16.3 kg/m2 Results Test Acquired Date Facility Test Result H/L Range Note CBC With Diff 02/14/2019 [facility] WBC 7.9 10*3/uL (4.1-11.0) RBC 3.39 10*6/uL Low (4.00-5.40) HGB 11.1 g/dL Low (12.0-16.0) HCT 32.0 % Low (36.0-47.0) MCV 94.4 fL (80.0-95.0) MCH 32.7 pg High (27.0-32.0) MCHC 34.7 g/dL (32.0-36.0) RDW 13.0 % (10.5-14.5) PLT 272 10*3/uL (150-450) MPV 9.1 fL (7.1-10.7) Neut % 64.5 % (35.0-75.0) Lymph % 18.5 % (16.0-52.0) [place] % 11.3 % High (0.0-8.0) Eos % 4.9 % (0.0-5.0) Baso % 0.8 % (0.0-4.0) Neut # 5.1 10*3/uL (1.8-7.7) Lymph # 1.5 10*3/uL (1.2-4.8) [place] # 0.9 10*3/uL High (0.0-0.8) Eos # 0.4 10*3/uL (0.0-0.5) Baso # 0.1 10*3/uL (0.0-0.2) Laboratory test 02/14/2019 [facility] Ferritin @ 668 ng/mL High (8-252 ) finding Iron Panel 02/14/2019 [facility] Iron,Total @ 66 g/dL (35-150) Uibc @ 201 g/dL (130-375) Tibc @ 267 g/dL (250-450) % Saturation 25 % (12-50) Laboratory test 02/14/2019 [facility] Vitamin B12 @ >2000 pg/mL High ( 193-986) finding NT Pro BNP 2396 pg/mL High (0-125) Laboratory test finding 12/20/2018 [facility] Keppra @ 62 ug/mL High (5 -30) 1 Valproic Acid 54 ug/mL (50-110) CMP 12/20/2018 [facility] Sodium 134 mmol/L Low (136-145) Potassium 5.3 mmol/L High (3.6-5.2) Chloride 98 mmol/L Low (100-108) Co2 28 mmol/L (22-31) Anion Gap 8 mmol/L (7-16) Urea Nitrogen 18 mg/dL (7-24) Creatinine 1.05 mg/dL High (0.60-1.00) BUN/Creat Ratio 17.1 RATIO (10.0-20.0) Glucose 294 mg/dL High (70-99) Calcium 9.0 mg/dL (8.4-10.2) Total Protein 6.9 g/dL (6.4-8.2) Albumin 3.9 g/dL (3.2-4.5) Globulin 3.0 g/dL (2.7-4.3) Alb/Glob Ratio 1.3 RATIO Alkaline Phosphatase 71 U/L (45-117) Bilirubin,Total 0.3 mg/dL (0.0-1.0) Ast (Sgot) 23 U/L (11-39) Alt (SGPT) 23 U/L (12-78) GFR 52 ml/min/1.73m2 Low (>59) GFR ( Amer) >60 ml/min/1.73m2 (>59) GFR Interpretation <SEE NOTE> 2 CBC With Diff 12/20/2018 [facility] WBC 5.8 10*3/uL (4.1-11.0) RBC 3.23 10*6/uL Low (4.00-5.40) HGB 10.5 g/dL Low (12.0-16.0) HCT 31.0 % Low (36.0-47.0) MCV 96.1 fL High (80.0-95.0) MCH 32.5 pg High (27.0-32.0) MCHC 33.9 g/dL (32.0-36.0) RDW 12.7 % (10.5-14.5) PLT 295 10*3/uL (150-450) MPV 8.6 fL (7.1-10.7) Neut % 62.7 % (35.0-75.0) Lymph % 19.8 % (16.0-52.0) [place] % 13.4 % High (0.0-8.0) Eos % 3.3 % (0.0-5.0) Baso % 0.8 % (0.0-4.0) Neut # 3.6 10*3/uL (1.8-7.7) Lymph # 1.1 10*3/uL Low (1.2-4.8) [place] # 0.8 10*3/uL (0.0-0.8) Eos # 0.2 10*3/uL (0.0-0.5) Baso # 0.0 10*3/uL (0.0-0.2) 1 Notified keppra level too high. Will decrease. No other changes for the time being. 2 NORMAL KIDNEY FUNCTION OR MILD DISEASE - GFR >OR= 60 CHRONIC KIDNEY DISEASE - GFR 15 - 59 RENAL FAILURE - GFR <15 Est. GFR calculation based on the MDRD study equation, which assumes a steady state for creatinine. Est. GFR should not be used for medication dosing. Procedures Date Code Description Status 11/08/2018 144564007 Diabetic Retinal Eye Exam Completed 05/31/2018 [id number] Mammogram Completed 06/27/2015 [id number] Bone Mineral Density Test Completed 02/20/2009 [id number] Colonoscopy Completed Medical Devices Description No Information Available Encounters Type Date Location Provider Dx Diagnosis Office Visit 02/14/2019 Main Mo Quinonez M.D. D64.9 Anemia, unspecified 10:40a R60.0 Localized edema Office Visit 01/24/2019 1:10p Main Office Mo Caal J32.2 Chronic ethmoidal M.D. sinusitis Office Visit 01/12/2019 10:20a Main Mo Quinonez J06.9 Acute upper M.D. respiratory infection, unspecified J44.1 Chronic obstructive pulmonary disease w (acute) exacerbation J01.90 Acute sinusitis, unspecified Office Visit 12/20/2018 3:30p Main Office Mo Caal M.D. 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 pulmonary disease w (acute) exacerbation Assessments Date Code Description Provider 04/14/2019 J06.9 Acute upper respiratory infection, unspecified Mo Caal M.D. 04/14/2019 J44.1 Chronic obstructive pulmonary disease with Mo Caal M.D. (acute) exacerbat 04/14/2019 J01.90 Acute sinusitis, unspecified Mo Caal M.D. 02/14/2019 D64.9 Anemia, unspecified Mo Caal M.D. 02/14/2019 R60.0 Localized edema Mo Caal M.D. 01/24/2019 J32.2 Chronic ethmoidal sinusitis Mo Caal M.D. 01/12/2019 J06.9 Acute upper respiratory infection, unspecified Mo Caal M.D. 01/12/2019 J44.1 Chronic obstructive pulmonary disease with Mo Caal M.D. (acute) exacerbat 01/12/2019 J01.90 Acute sinusitis, unspecified Mo Caal M.D. 12/20/2018 R53.83 Other fatigue Mo Caal M.D. 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 (acute) exacerbat Plan of Treatment 04/14/2019 - Mo Caal M.D.J06.9 Acute upper respiratory infection, unspecifiedComments:Colds generally will last 9-12 days. Antibiotics are not helpful with colds. Symptomatic therapy with fluids, rest and chicken noodle soup. AFRIN (or generic) in a pump/mist bottle. max 5-7 days of useONLY. Longer use can cause "addiction". Drop head down, nose to toes, when doing spray. Get the pump bottle because it gets further back to decongest the sinuses. Especially before bed.J44.1 Chronic obstructive pulmonary disease with (acute) exacerbatNew Medication:Prednisone 20 mg - 3 by mouth daily for 4 days, 2 by mouth daily for 4 days then 1 by mouth daily for 4 daysDoxycycline Hyclate 100 mg - 1 by mouth twice a day with gwayujC06.90 Acute sinusitis, unspecifiedComments:Call if itchy rash or bloody diarrhea develop.Yogurt/ probiotic can prevent diarrhea. Take with food Functional Status Functional Condition Comment Date Status Glasses Active Mental Status Description No Information Available Referrals Description No Information Available
[2019-04-30 11:04] VITALS: BP 160/54
--- NOTE | 2019-04-30 11:11 | UC ---
Complaint Female HPI - HPI Summary HPI Summary: Patient is 73 year old female, who present today to the urgent care with urinary symptoms for past 6 hours. Reports urinary frequency, urinary urgency and dysuria for six hours. She denies any fever , abdominal pain or back pain Last UTI. No nausea vomiting or diarrhea. No hematuria, no vaginal symptoms. She does have mild pelvic discomfort. - History Of Current Complaint Chief Complaint: UCGU Stated Complaint: UTI SYMPTOMS Time Seen by Provider: 04/30/19 10:55 Hx Obtained From: Patient Hx Last Menstrual Period: n/a Pain Intensity: 0 - Allergies/Home Medications Allergies/Adverse Reactions: Allergies Allergy/AdvReac Type Severity Reaction Status Date / Time cefaclor [From Ceclor] Allergy Intermediate Rash Verified 04/30/19 10:57 Penicillins Allergy Intermediate Rash Verified 04/30/19 10:57 benzocaine Allergy Mild Rash Verified 04/30/19 10:57 doxycycline AdvReac Intermediate GI Upset Verified 04/30/19 10:57 levofloxacin [From Levaquin] AdvReac total body Verified 04/30/19 10:57 weakness, could not walk Sulfa (Sulfonamide AdvReac Diarrhea Verified 04/30/19 10:57 Antibiotics) zithromax AdvReac See Comment Uncoded 04/30/19 10:57 PMH/Surg Hx/FS Hx/Imm Hx - Additional Past Medical History Additional PMH: Past Medical History : COPD, diabetes mellitus, hypertension, hypothyroidism, PVD, seizures Past Surgical History: Quadruple bypass in 2008, cholecystectomy, right leg vascular surgery Family History : non contributory Social History : no alcohol, non smoker, no drug use. Previously Healthy: Yes - Surgical History Surgical History: Yes Surgery Procedure, Year, and Place: CORONARY BYPASS- QUAD-2008. GALL BLADDER REMOVAL,BLADDER REPAIR. RIGHT leg vascular surgery 2014 - Family History Known Family History: Positive: Cardiac Disease Negative: Diabetes - Social History Alcohol Use: None Substance Use Type: None Substance Use Comment - Amount & Last Used: no narcotics Smoking Status (MU): Never Smoked Tobacco Have You Smoked in the Last Year: No - Immunization History Most Recent Influenza Vaccination: 2016 Most Recent Tetanus Shot: 05/02/17 Most Recent Pneumonia Vaccination: UTD Vaccination Up to Date: Yes Review of Systems All Other Systems Reviewed And Are Negative: Yes Constitutional: Positive: Negative Skin: Positive: Negative Eyes: Positive: Negative ENT: Positive: Negative Respiratory: Positive: Negative Cardiovascular: Positive: Negative Gastrointestinal: Positive: Negative Genitourinary: Positive: Dysuria, Frequency, Urgency. Negative: Hematuria Motor: Positive: Negative Neurovascular: Positive: Negative Musculoskeletal: Positive: Negative Neurological: Positive: Negative Psychological: Positive: Negative Is Patient Immunocompromised?: No Physical Exam - Summary Physical Exam Summary: Physical Exam: Const: Appears well. No signs of apparent distress present. Alert and oriented x 3. Musculo: Walks with a normal gait. Head/Face: Atraumatic, normocephalic on inspection. Eyes: EOMI and PERRLA in both eyes. Conjunctivae clear. No discharge noted ENT: Hearing normal Respiratory: Respirations are unlabored CVS: Regular rate and Rhythm, S1S2 normal , no murmurs identified. Extremities: Peripheral circulation is grossly normal. Pulses 2+ Abdomen : Soft , mild discomfort in suprapubic area. nondistended , Bowel sounds present . No guarding , rebound tenderness or rigidity noted. No CVA tenderness. Skin: No lesions or rash located on the upper extremities or on the lower extremities. Neuro: Cranial nerves II to XII intact, motor and sensory intact. DTR Intact bilaterally. Mood is normal. Affect is normal. Triage Information Reviewed: Yes Vital Signs: Initial Vital Signs Temp 98.1 F 04/30/19 10:53 Pulse 68 04/30/19 10:53 Resp 16 04/30/19 10:53 BP 160/54 04/30/19 10:53 Pulse Ox 100 04/30/19 10:53 Vital Signs Reviewed: Yes Complaint Female Dx - Course Course Of Treatment: UA positive for 1+ leuk esterase and 1+ glucose. Plan to treat it with nitrofurantoin. I advised her to somebody will call her with the culture test results oif antibiotics need to be changed. - Differential Dx/Diagnosis Provider Diagnosis: UTI (urinary tract infection) Discharge ED - Sign-Out/Discharge Documenting (check all that apply): Patient Departure All imaging exams completed and their final reports reviewed: No Studies - Discharge Plan Condition: Stable Disposition: HOME Prescriptions: Nitrofurantoin Monohyd/M-Cryst [Macrobid 100 mg Capsule] 100 mg PO BID 5 Days # 10 cap Patient Education Materials: Urinary Tract Infection in Women (ED) Referrals: Mo Caal MD [Primary Care Provider] - 1 Week Additional Instructions: Please start taking the medication as prescribed to the pharmacy . increase fluids. Urine cultures are obtained and somebody will call you with test results if the medication needs to be changed. Follow up with your primary care doctor in 1 week if needed. Patients blood pressure slightly high in Urgent care today , plan follow up with PCP for better control Return to Urgent care / ER if symptoms get worse. - Billing Disposition and Condition Condition: STABLE Disposition: Home
== END 2019-04-30 11:33 | disposition home or self-care (01) ==
LOC: UCCORT 09:38
DX: N39.0 Urinary tract infection, site not specified (principal); E11.9 Type 2 diabetes mellitus without complications; I10 Essential (primary) hypertension; I73.9 Peripheral vascular disease, unspecified; J44.9 Chronic obstructive pulmonary disease, unspecified; Z88.0 Allergy status to penicillin; Z88.1 Allergy status to other antibiotic agents; Z88.4 Allergy status to anesthetic agent; Z88.2 Allergy status to sulfonamides
CPT/HCPCS: 81003; 87077; 87086; 87186; 99212; G0463

== ENCOUNTER 2019-05-08 10:40 | Emergency (ER) | payer MEDICARE, BC ==
[2019-05-08 11:41] VITALS: BP 152/47
--- NOTE | 2019-05-08 11:45 | UC ---
Palpitation/Dysrhythmia HP - HPI Summary HPI Summary: 73 yo female with cough "fit" this AM (lasted 6-7 minutes) This was follow by palpitations x 20-30 minutes (racing heart) since then has been dyspneic denies CP has had sinus symptoms x 2 weeks no f/c - History of Current Complaint Stated Complaint: HESTER,CONGESTION,COUGH Hx Obtained From: Patient Hx Last Menstrual Period: n/a Onset/Duration: Sudden Onset, Lasting Hours Timing: Constant Severity Initially: Mild Severity Currently: Moderate Pain Intensity: 3 Pain Scale Used: 0-10 Numeric Character: Fast, Pounding Aggravating Factor(s): Other - coughing spell Associated Signs & Symptoms: Positive: Chest Pain - mild pain which she attributes to chest wall pain from coughing spell, Shortness of Breath - Allergy/Home Medications Allergies/Adverse Reactions: Allergies Allergy/AdvReac Type Severity Reaction Status Date / Time cefaclor [From Ceclor] Allergy Intermediate Rash Verified 04/30/19 10:57 Penicillins Allergy Intermediate Rash Verified 04/30/19 10:57 benzocaine Allergy Mild Rash Verified 04/30/19 10:57 doxycycline AdvReac Intermediate GI Upset Verified 04/30/19 10:57 levofloxacin [From Levaquin] AdvReac total body Verified 04/30/19 10:57 weakness, could not walk Sulfa (Sulfonamide AdvReac Diarrhea Verified 04/30/19 10:57 Antibiotics) zithromax AdvReac See Comment Uncoded 04/30/19 10:57 Home Medications: Home Medications Cyanocobalamin (Vitamin B-12) [Vitamin B-12] 2,500 mcg PO SEE INSTRUCTIONS 05/08 [History Confirmed 05/08/19] Insulin LISPRO* [HumaLOG 100 units/ml 3 ml VIAL *] 0.6 units SUBCUT SEE INSTRUCTIONS 05/08/19 [History Confirmed 05/08/19] Magnesium Hydroxide [Pedia-Lax] 400 mg PO DAILY 05/08/19 [History Confirmed ] Ondansetron [Ondansetron Odt] 4 mg PO DAILY 05/08/19 [History Confirmed 05/08/19 ] PMH/Surg Hx/FS Hx/Imm Hx Previously Healthy: No Endocrine History: Diabetes Cardiovascular History: Cardiac Disease, Hypertension Respiratory History: COPD - Surgical History Surgical History: Yes Surgery Procedure, Year, and Place: CORONARY BYPASS- QUAD-2009. GALL BLADDER REMOVAL,BLADDER REPAIR. RIGHT leg vascular surgery 2015 - Family History Known Family History: Positive: Cardiac Disease Negative: Diabetes - Social History Alcohol Use: None Substance Use Type: None Substance Use Comment - Amount & Last Used: no narcotics Smoking Status (MU): Never Smoked Tobacco Have You Smoked in the Last Year: No - Immunization History Most Recent Influenza Vaccination: 2017 Most Recent Tetanus Shot: 05/02/17 Most Recent Pneumonia Vaccination: UTD Vaccination Up to Date: Yes Review of Systems All Other Systems Reviewed And Are Negative: Yes Constitutional: Positive: Fatigue Skin: Positive: Negative Eyes: Positive: Negative ENT: Positive: Negative Respiratory: Positive: Shortness Of Breath, Cough Cardiovascular: Positive: Palpitations Gastrointestinal: Positive: Negative Genitourinary: Positive: Negative Motor: Positive: Negative Neurovascular: Positive: Negative Musculoskeletal: Positive: Edema Neurological: Positive: Negative Psychological: Positive: Negative Physical Exam Triage Information Reviewed: Yes Appearance: No Pain Distress, Thin, Other: - pale Vital Signs: Initial Vital Signs Temp 98.9 F 05/08/19 11:34 Pulse 90 05/08/19 11:34 Resp 16 05/08/19 11:34 BP 152/47 05/08/19 11:34 Pulse Ox 97 05/08/19 11:34 Vital Signs Reviewed: Yes Eyes: Positive: Conjunctiva Clear ENT: Positive: Hearing grossly normal, Nasal congestion, Uvula midline. Negative: Muffled voice, Hoarse voice Neck: Positive: Supple Respiratory: Positive: Crackles - bibasilar, Other: - increased WOB. Negative: Wheezing Cardiovascular: Positive: RRR Musculoskeletal: Positive: Edema @ - +++ pre tibial Neurological: Positive: Alert Psychological Exam: Normal Skin Exam: Normal Diagnostics - EKG Cardiac Rate: NL Cardiac Rhythm: Sinus: Normal ST Segment: : Other EKG Comparison: No Significant Change - from 10/23/16 Summary of EKG Findings: LVH with strain, LAHB Palpitations Course/Dx - Differential Dx/Diagnosis Provider Diagnosis: Dyspnea Discharge ED - Sign-Out/Discharge Documenting (check all that apply): Patient Departure All imaging exams completed and their final reports reviewed: No Studies - Discharge Plan Condition: Guarded Disposition: TRANS [facility] FAC Referrals: Mo Caal MD [Primary Care Provider] - - Billing Disposition and Condition Condition: GUARDED Disposition: Trans Higher Lvl of Care Fac
[2019-05-08] MEDS ORDERED: Aspirin 81 mg CHEW TAB* 81 MG TAB.CHEW PO ONE (11:58)
== END 2019-05-08 12:22 | disposition short-term general hospital (02) ==
LOC: UCCORT 10:40
DX: R06.00 Dyspnea, unspecified (principal); R05 Cough; R00.2 Palpitations; Z88.1 Allergy status to other antibiotic agents; R07.89 Other chest pain; R06.02 Shortness of breath; E11.9 Type 2 diabetes mellitus without complications; I10 Essential (primary) hypertension; J44.9 Chronic obstructive pulmonary disease, unspecified; Z88.0 Allergy status to penicillin; Z88.8 Allergy status to other drugs, medicaments and biological substances; Z88.2 Allergy status to sulfonamides; Z79.4 Long term (current) use of insulin
CPT/HCPCS: 93005; 99214; A9270-GY; G0463

== ENCOUNTER 2019-05-28 11:36 | Emergency (ER) | payer MEDICARE, BC ==
--- OUTSIDE RECORDS SUMMARY | 2019-05-28 14:13 | XMS REPORT | Continuity of Care Document ---
:1945 External Reference #:[id number] Author Name Mo Caal M.D. Address [address] [place] [address] Care Team Providers Name Role Phone Mo Caal M.D. 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 Diskus Day , Rinse And 500-50mcg/Dose Spit After Use Aerosol Levetiracetam 1 tab by mouth 90tabs Mo [...] 30tabs Mo Caal 01/13/2016 By Mouth Every M.DShai 500mg Tablets ER 24HR Day AT Bedtime Losartan Potassium 1 by mouth every R05 Mo Caal 01/10/2016 day M.D. 100mg Tablets Escitalopram Oxalate Take One Tablet 30tabs F43.23 Mo Caal 2015 By Mouth Every M.D. 5mg Tablets Day Incruse Ellipta Inhale One puff 30units J44.9 Mo Caal 04/09/2015 By Mouth Every M.D. 62.5mcg/Inh Aerosol Day Zofran take one tablet 60tabs R11.0 Mo Caal 10/05/2014 4mg Tablets by mouth every 8 M.D. hours as needed for nausea and vomiting Freestyle Lite Test Use To Test 6 200units Arnie Ki 07/31/2014 Times A Day Debora Frey Strip Metoprolol Succinate 1/2 by mouth Unknown ER every day in am & 25mg Tablets ER 24HR pm Amlodipine Besylate 1 by mouth every Unknown day 2.5mg Tablets Amlodipine Besylate 1 by mouth every Unknown 5mg day Tablets Praluent 1 injection every Unknown 75mg/ml 2 weeks Solution Pen-Inject Primidone Take 1 Tablet By 30tabs Mo Caal 50mg Tablets Mouth AT Night M.D. Levothyroxine Sodium 1 by mouth every Unknown day 112mcg Tablets Humalog sliding scale as Unknown 100Unit/ML needed Solution Cartridge [place] Ultra 1000 one table by Unknown 1000mg mouth every 4 Chewtabs hours as needed. Vitamin D3 1 by mouth every Unknown 1000Unit day Capsules Aspir-81 1 by mouth every Unknown 81mg Tablets day DR History Medications Nitrofurantoin Monohyd Twice Daily 10caps Unknown 04/30/2019 - Macro 05/10/2019 100mg Capsules Prednisone 3 by mouth 24tabs J44.1 Mo Caal 04/14/2019 - 20mg Tablets daily for 4 M.D. 04/26/2019 days, 2 by mouth daily for 4 days then 1 by mouth daily for 4 days Doxycycline Hyclate 1 by mouth 20caps J44.1 Mo Caal 04/14/2019 - 100mg twice a day M.D. 04/24/2019 Capsules with zofran Doxycycline Hyclate 2 caps by mouth 2caps Mo Caal 03/14/2019 - 100mg once with M.D. 03/17/2019 Capsules zofran Levetiracetam ER 1 tab by mouth 90tabs Mo Caal 02/15/2019 - 500mg every day M.D. 02/16/2019 Tablets ER 24HR Clindamycin HCL 1 by mouth four 40caps J32.2 Mo CaalShai 01/24/2019 - 150mg times a day M.D. 02/03/2019 Capsules Prednisone 3 by mouth 24tabs J44.1 Mo Caal. 01/12/2019 - 20mg Tablets daily for 4 [...] CPT Code Status Date Vaccine Lot # [id number] Given 12/28/2017 Influenza Vaccine Split Virus Preservative Free Im [id number] Use 13297 Given 01/13/2017 Influenza Vaccine Split Virus Preservative Free [place] Use 57154 Given 01/10/2016 Influenza Vaccine Split Virus Preservative Free Im [id number] Use 13054 Given 01/05/2015 Influenza Virus Vaccine, Quadrivalent, Split Virus, Im Use 3 &Up Vital Signs Date Vital Result Comment 05/10/2019 10:23am Weight 103.00 lb BP Systolic 130 mmHg BP Diastolic 40 mmHg Body Temperature 98.0 F Height 66.0 inches 5'6" Heart Rate 68 /min O2 % BldC Oximetry 92 % BMI (Body Mass Index) 16.6 kg/m2 04/14/2019 11:38am Weight 100.00 lb BP Systolic 160 mmHg BP Diastolic 54 mmHg Body Temperature 98.1 F Height 66.0 inches 5'6" Heart Rate 62 /min O2 % BldC Oximetry 96 % BMI (Body Mass Index) 16.1 kg/m2 Results Test Acquired Facility Test Result H/L Range Note Date Urine clarity 04/30/2019 N2N/CCD Import Urine clarity Clear determination determination Lab Results 04/30/2019 N2N/CCD Import Bedside Urine Yellow Color (Lab) Urine leukocyte 04/30/2019 N2N/CCD Import Urine leukocyte 1+ Negative esterase esterase detection by detection by dipstick dipstick Urine nitrite 04/30/2019 N2N/CCD Import Urine nitrite Negative Negative detection by detection by test strip test strip Urine 04/30/2019 N2N/CCD Import Urine 0.2 Negative urobilinogen urobilinogen measurement measurement (units/volume) (units/volume) by t by test strip Urine protein 04/30/2019 N2N/CCD Import Urine protein Negative Negative measurement by measurement by test strip test strip (mass/volu (mass/volume) Urine pH 04/30/2019 N2N/CCD Import Urine pH 5.5 5-9 measurement by measurement by test strip test strip Urine hemoglobin 04/30/2019 N2N/CCD Import Urine hemoglobin Trace-intac Negative detection by detection by t test strip test strip Specific gravity 04/30/2019 N2N/CCD Import Specific gravity 1.010 1.010- 1.030 of Urine by Test of Urine by Test strip strip Urine ketones 04/30/2019 N2N/CCD Import Urine ketones Negative Negative measurement by measurement by test strip test strip (mass/volu (mass/volume) Urine total 04/30/2019 N2N/CCD Import Urine total Negative Negative bilirubin bilirubin detection by detection by test strip test strip Urine glucose 04/30/2019 N2N/CCD Import Urine glucose 1+ Negative measurement by measurement by test strip test strip (mass/volu (mass/volume) CBC With Diff 02/14/2019 [facility] WBC 7.9 10*3/uL (4.1-11.0) RBC 3.39 10*6/uL Low (4.00-5.40) HGB 11.1 g/dL Low (12.0-16.0) HCT 32.0 % Low (36.0-47.0) MCV 94.4 fL (80.0-95.0) MCH 32.7 pg High (27.0-32.0) MCHC 34.7 g/dL (32.0-36.0) RDW 13.0 % (10.5-14.5) PLT 272 10*3/uL (150-450) MPV 9.1 fL (7.1-10.7) Neut % 64.5 % (35.0-75.0) Lymph % 18.5 % (16.0-52.0) [place] % 11.3 % High (0.0-8.0) Eos % 4.9 % (0.0-5.0) Baso % 0.8 % (0.0-4.0) Neut # 5.1 10*3/uL (1.8-7.7) Lymph # 1.5 10*3/uL (1.2-4.8) [place] # 0.9 10*3/uL High (0.0-0.8) Eos # 0.4 10*3/uL (0.0-0.5) Baso # 0.1 10*3/uL (0.0-0.2) Laboratory test 02/14/2019 [facility] Ferritin @ 668 ng/mL High (8-252 ) finding Iron Panel 02/14/2019 [facility] Iron,Total @ 66 g/dL (35-150) Uibc @ 201 g/dL (130-375) Tibc @ 267 g/dL (250-450) % Saturation 25 % (12-50) Laboratory test 02/14/2019 [facility] Vitamin B12 @ >2000 pg/mL High ( 193-986) finding NT Pro BNP 2396 pg/mL High (0-125) Laboratory test finding 12/20/2018 [facility] Keppra @ 62 ug/mL High (5 -30) 1 Valproic Acid 54 ug/mL (50-110) CMP 12/20/2018 [facility] Sodium 134 mmol/L Low (136-145) Potassium 5.3 [...] NOTE> 2 CBC With Diff 12/20/2018 [facility] WBC 5.8 10*3/uL (4.1-11.0) RBC 3.23 10*6/uL Low (4.00-5.40) HGB 10.5 g/dL Low (12.0-16.0) HCT 31.0 % Low (36.0-47.0) MCV 96.1 fL High (80.0-95.0) MCH 32.5 pg High (27.0-32.0) MCHC 33.9 g/dL (32.0-36.0) RDW 12.7 % (10.5-14.5) PLT 295 10*3/uL (150-450) MPV 8.6 fL (7.1-10.7) Neut % 62.7 % (35.0-75.0) Lymph % 19.8 % (16.0-52.0) [place] % 13.4 % High (0.0-8.0) Eos % 3.3 % (0.0-5.0) Baso % 0.8 % (0.0-4.0) Neut # 3.6 10*3/uL (1.8-7.7) Lymph # 1.1 10*3/uL Low (1.2-4.8) [place] # 0.8 10*3/uL (0.0-0.8) Eos # 0.2 [...] medication dosing. Procedures Date Code Description Status 05/10/2019 37433 Oximetry Single Determination Completed 11/08/2018 167666585 Diabetic Retinal Eye Exam Completed 05/31/2018 [id number] Mammogram Completed 06/27/2015 [id number] Bone Mineral Density Test Completed 02/20/2009 [id number] Colonoscopy Completed Medical Devices Description No Information Available Encounters Type Date Location Provider Dx Diagnosis Office Visit 04/14/2019 Main Office Mo Caal J06.9 Acute upper 11:30a M.D. respiratory infection, unspecified J06.9 Acute upper respiratory infection, unspecified J01.90 Acute sinusitis, unspecified J44.1 Chronic obstructive pulmonary disease w (acute) exacerbation J01.90 Acute sinusitis, unspecified Office Visit 02/14/2019 10:40a Main Office Mo Caal D64.9 Anemia, unspecified M.D. R60.0 Localized edema Office Visit 01/24/2019 1:10p Main Office Mo Caal J32.2 Chronic ethmoidal M.D. sinusitis Office Visit 01/12/2019 10:20a Main Office Mo Caal J06.9 Acute upper M.D. respiratory infection, unspecified J44.1 Chronic obstructive pulmonary disease w (acute) exacerbation J01.90 Acute sinusitis, unspecified Office Visit 12/20/2018 3:30p Main Office Mo Caal M.D. 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 pulmonary disease w (acute) exacerbation Assessments Date Code Description Provider 05/10/2019 D64.9 Anemia, unspecified Afua, Mo Lopez M.D. 04/14/2019 J06.9 Acute upper respiratory infection, unspecified Afua, Mo Lopez M.D. 04/14/2019 J06.9 Acute upper respiratory infection, unspecified Afua, Mo Lopez M.D. 04/14/2019 J01.90 Acute sinusitis, unspecified Afua, Mo Lopez M.D. 04/14/2019 J44.1 Chronic obstructive pulmonary disease [...] Caal M.D. (acute) exacerbat Plan of Treatment 05/10/2019 - Mo Caal M.D.D64.9 Anemia, unspecifiedNew Labs:Ferritin, Ordered: 05/10/19Iron Panel, Ordered: 05/10/19Comments:Continue iron and vitamin C.CAll if your breathing is worse. Functional Status Functional Condition Comment Date Status Glasses Active Mental Status Description No Information Available Referrals Description No Information Available
[2019-05-28 14:20] VITALS: BP 145/41
--- NOTE | 2019-05-28 14:52 | UC ---
Complaint Female HPI - HPI Summary HPI Summary: 73yo female presenting with urinary frequency, urgency, and dysuria x3 days. Denies hematuria, flank pain, abdominal pain. Denies n/v. Denies fever and chills. Does note that she had a scheduled heart cath last week and is concerned it may be related. Also notes UTI last month. - History Of Current Complaint Chief Complaint: UCGU Stated Complaint: URINARY Time Seen by Provider: 05/28/19 14:48 Hx Obtained From: Patient Hx Last Menstrual Period: n/a Pain Intensity: 1 - Allergies/Home Medications Allergies/Adverse Reactions: Allergies Allergy/AdvReac Type Severity Reaction Status Date / Time cefaclor [From Ceclor] Allergy Intermediate Rash Verified 05/28/19 14:20 Penicillins Allergy Intermediate Rash Verified 05/28/19 14:20 benzocaine Allergy Mild Rash Verified 05/28/19 14:20 doxycycline AdvReac Intermediate GI Upset Verified 05/28/19 14:20 levofloxacin [From Levaquin] AdvReac total body Verified 05/28/19 14:20 weakness, could not walk Sulfa (Sulfonamide AdvReac Diarrhea Verified 05/28/19 14:20 Antibiotics) zithromax AdvReac See Comment Uncoded 05/28/19 14:20 PMH/Surg Hx/FS Hx/Imm Hx Endocrine History: Diabetes Cardiovascular History: Cardiac Disease, Hypertension - Surgical History Surgical History: Yes Surgery Procedure, Year, and Place: CORONARY BYPASS- QUAD-2008. GALL BLADDER REMOVAL,BLADDER REPAIR. RIGHT leg vascular surgery 2014. heart cath - Family History Known Family History: Positive: Cardiac Disease Negative: Diabetes - Social History Alcohol Use: None Substance Use Type: None Substance Use Comment - Amount & Last Used: no narcotics Smoking Status (MU): Never Smoked Tobacco Have You Smoked in the Last Year: No - Immunization History Most Recent Influenza Vaccination: 2017 Most Recent Tetanus Shot: 05/02/17 Most Recent Pneumonia Vaccination: UTD Vaccination Up to Date: Yes Review of Systems All Other Systems Reviewed And Are Negative: Yes Constitutional: Positive: Negative. Negative: Fever, Chills Respiratory: Positive: Negative Cardiovascular: Positive: Negative Gastrointestinal: Positive: Negative Genitourinary: Positive: Dysuria, Frequency, Urgency Musculoskeletal: Positive: Negative Physical Exam - Summary Physical Exam Summary: Vital Signs Reviewed: Yes A+Ox3, no distress, well-appearing Eyes: Conjunctiva Clear ENT: Hearing grossly normal Neck: Positive: Supple Respiratory: Positive: No respiratory distress, No accessory muscle use + CTA throughout no w/r Cardiovascular: RRR nl s1, s2 no m/r CBT <2 sec Abd: soft + BS nt/nd no guarding, no CVA tenderness Musculoskeletal Exam: PARTIDA x 4 without difficulty Neurological: Positive: Alert Psychological: Positive: age appropriate behavior Skin: Positive: no rash, no ecchymosis Vital Signs: Initial Vital Signs Temp 97.6 F 05/28/19 14:13 Pulse 79 05/28/19 14:13 Resp 18 05/28/19 14:13 BP 145/41 05/28/19 14:13 Pulse Ox 98 05/28/19 14:13 Lab Results 05/28/19 Range/Units 14:36 POC Urine Color Yellow POC Urine Clarity Cloudy POC Urine pH 5.5 (5-9) POC Ur Specif [place] 1.010 (1.010-1.030) POC Urine Protein 1+ A (Negative) POC Ur Glucose (UA) Negative (Negative) POC Urine Ketones Negative (Negative) POC Urine Blood 2+ A (Negative) POC Urine Nitrite Negative (Negative) POC Urine Bilirubin Negative (Negative) POC Urine Urobilinogen 0.2 (Negative) POC U Leukocyte Esteras 3+ A (Negative) Complaint Female Dx - Course Course Of Treatment: UA positive for leuks and blood. Treated with macrobid and instructed to increase fluid intake. Instructed to follow up if symptoms not improving within next 1-2 days. Patient voiced understanding and agreed with treatment plan. - Differential Dx/Diagnosis Provider Diagnosis: UTI (urinary tract infection) Discharge ED - Sign-Out/Discharge Documenting (check all that apply): Patient Departure All imaging exams completed and their final reports reviewed: No Studies - Discharge Plan Condition: Stable Disposition: HOME Prescriptions: Nitrofurantoin Monohyd/M-Cryst [Macrobid 100 mg Capsule] 100 mg PO BID #10 cap Patient Education Materials: Urinary Tract Infection in Women (ED) Referrals: Mo Caal MD [Primary Care Provider] - If Needed Additional Instructions: Take Macrobid for treatment of your UTI. Increase your fluid intake. Follow up with your PCP if symptoms do not improve within 1-2 days. Return or go to emergency room with any new or worsening symptoms. - Billing Disposition and Condition Condition: STABLE Disposition: Home - Attestation Statements Provider Attestation: This patient was not seen by me. I was available for consult. Chart reviewed. LUCRECIA
== END 2019-05-28 15:21 | disposition home or self-care (01) ==
LOC: UCCORT 11:36
DX: N39.0 Urinary tract infection, site not specified (principal); E11.9 Type 2 diabetes mellitus without complications; I10 Essential (primary) hypertension; Z88.0 Allergy status to penicillin; Z88.1 Allergy status to other antibiotic agents; Z88.2 Allergy status to sulfonamides; Z88.4 Allergy status to anesthetic agent; Z95.1 Presence of aortocoronary bypass graft
CPT/HCPCS: 81003; 87077; 87086; 87186; 99212; G0463

== ENCOUNTER 2019-06-12 17:58 | Emergency (ER) | payer MEDICARE, BC ==
[2019-06-12 19:06] VITALS: BP 154/42
[2019-06-12 19:31] LABS: Influenza A Molecular Negative (Negative); Influenza B Molecular Negative (Negative)
--- NOTE | 2019-06-12 20:02 | UC ---
Respiratory Complaint HPI - HPI Summary HPI Summary: 73 yo female with malaise and fatigue x 2 days <24 hours of f/c, arthralgia and myalgia HESTER congestion no cp or sob no UTI symptoms - History of Current Complaint Chief Complaint: UCGeneralIllness Stated Complaint: FEVER,BODY ACHES Time Seen by Provider: 06/12/19 19:37 Hx Obtained From: Patient Hx Last Menstrual Period: n/a Onset/Duration: Gradual Onset, Lasting Hours Timing: Constant Severity Initially: Mild Severity Currently: Mild Pain Intensity: 4 Pain Scale Used: 0-10 Numeric Character: Cough: Nonproductive Aggravating Factors: Nothing Alleviating Factors: Nothing Associated Signs And Symptoms: Positive: Fever, Chills, Nasal Congestion - Allergies/Home Medications Allergies/Adverse Reactions: Allergies Allergy/AdvReac Type Severity Reaction Status Date / Time cefaclor [From Ceclor] Allergy Intermediate Rash Verified 06/12/19 18:56 Penicillins Allergy Intermediate Rash Verified 06/12/19 18:56 benzocaine Allergy Mild Rash Verified 06/12/19 18:56 doxycycline AdvReac Intermediate GI Upset Verified 06/12/19 18:56 levofloxacin [From Levaquin] AdvReac total body Verified 06/12/19 18:56 weakness, could not walk Sulfa (Sulfonamide AdvReac Diarrhea Verified 06/12/19 18:56 Antibiotics) zithromax AdvReac See Comment Uncoded 06/12/19 18:56 Home Medications: Home Medications Aspirin EC TAB* [Ecotrin EC Low Dose 81 MG*] 81 mg PO QAM 08/15/14 [History Confirmed 06/12/19] Calcium Carbonate [Tums Ultra] 1,000 mg PO QAM 08/15/14 [History Confirmed 06/11] Cholecalciferol (Vitamin D3) [Vitamin D3] 1,000 unit PO TID 08/15/14 [History Confirmed 06/12/19] Divalproex ER TAB(*) [Depakote ER TAB(*)] 500 mg PO QPM 08/15/14 [History Confirmed 06/12/19] Metoprolol Tartrate TAB* [Lopressor TAB*] 12.5 mg PO BID 08/15/14 [History Confirmed 06/12/19] levETIRAcetam TAB* [Keppra TAB*] 500 mg PO DAILY 08/15/14 [History Confirmed 06/01] Fluticasone-Salmeterol 250-50* [Advair Diskus 250-50*] 1 puff INH BID 09/25/14 [ History Confirmed 06/12/19] Furosemide TAB* [Lasix TAB*] 20 mg PO QAM 05/02/17 [History Confirmed 06/12/19] amLODIPine TAB* [Norvasc 5 mg TAB*] 7.5 mg PO QAM 05/02/17 [History Confirmed ] Umeclidinium 62.5 MDI(NF) [Incruse ELLIPTA MDI (NF)] 2 inh INH QPM 12/05/17 [ History Confirmed 06/12/19] Alirocumab [Praluent Pen] 75 mg SUBCUT Q14D 08/08/18 [History Confirmed 06/12/19 ] Escitalopram * [Lexapro 5 mg (NF)] 5 mg PO DAILY 08/08/18 [History Confirmed 06/01] Levothyroxine TAB* [Synthroid 100 MCG TAB*] 112 mcg PO DAILY 08/08/18 [History Confirmed 06/12/19] Multivitamins/Minerals TAB* [Theragran/minerals TAB*] 1 tab PO DAILY 08/08/18 [ History Confirmed 06/12/19] Primidone 50 mg TAB (*) [Mysoline 250 mg TAB (*)] 50 mg PO BEDTIME 08/08/18 [ History Confirmed 06/12/19] Cyanocobalamin (Vitamin B-12) [Vitamin B-12] 2,500 mcg PO SEE INSTRUCTIONS 05/08 [History Confirmed 06/12/19] Insulin LISPRO* [HumaLOG 100 units/ml 3 ml VIAL *] 0.6 units SUBCUT SEE INSTRUCTIONS 05/08/19 [History Confirmed 06/12/19] Magnesium Hydroxide [Pedia-Lax] 400 mg PO BEDTIME 05/08/19 [History Confirmed ] Ondansetron [Ondansetron Odt] 4 mg PO DAILY 05/08/19 [History Confirmed 06/12/19 ] Ascorbic Acid TAB* [Vitamin C TAB*] 500 mg PO DAILY 06/12/19 [History Confirmed 06/12/19] Ferrous Sulfate TAB* 325 mg PO DAILY 06/12/19 [History Confirmed 06/12/19] Losartan Potassium 100 mg PO DAILY 06/12/19 [History Confirmed 06/12/19] Oseltamivir CAP* [Tamiflu CAP*] 75 mg PO BID #10 cap 06/12/19 [Rx] PMH/Surg Hx/FS Hx/Imm Hx Previously Healthy: Yes Endocrine History: Diabetes Cardiovascular History: Hypertension Respiratory History: COPD, Bronchitis, Pneumonia - Surgical History Surgical History: Yes Surgery Procedure, Year, and Place: CORONARY BYPASS- 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 GALL BLADDER REMOVAL,BLADDER REPAIR. RIGHT leg vascular surgery 2014. heart cath x 2 last one two weeks ago - Family History Known Family History: Positive: Cardiac Disease Negative: Diabetes - Social History Alcohol Use: None Substance Use Type: None Substance Use Comment - Amount & Last Used: no narcotics Smoking Status (MU): Never Smoked Tobacco Have You Smoked in the Last Year: No - Immunization History Most Recent Influenza Vaccination: 2016 Most Recent Tetanus Shot: 05/02/17 Most Recent Pneumonia Vaccination: UTD Vaccination Up to Date: Yes Review of Systems All Other Systems Reviewed And Are Negative: Yes Constitutional: Positive: Fever, Chills, Fatigue Skin: Positive: Negative Eyes: Positive: Negative ENT: Positive: Nasal Discharge, Sinus Congestion Respiratory: Positive: Cough Cardiovascular: Positive: Negative Gastrointestinal: Positive: Negative Genitourinary: Positive: Negative Motor: Positive: Negative Neurovascular: Positive: Negative Musculoskeletal: Positive: Negative Neurological/Mental Status: Positive: Headache Psychological: Positive: Negative Physical Exam Triage Information Reviewed: Yes Appearance: Well-Appearing, No Pain Distress, Well-Nourished Vital Signs: Initial Vital Signs Temp 100.0 F 06/12/19 18:58 Pulse 90 06/12/19 18:58 Resp 24 06/12/19 18:58 BP 154/42 06/12/19 18:58 Pulse Ox 96 06/12/19 18:58 Vital Signs Reviewed: Yes Eyes: Positive: Conjunctiva Clear ENT: Positive: Hearing grossly normal, Nasal congestion, Nasal drainage, Sinus tenderness. Negative: Pharyngeal erythema, Tonsillar swelling, Tonsillar exudate, Trismus, Muffled voice, Hoarse voice Neck: Positive: Supple, Nontender, No Lymphadenopathy Respiratory: Positive: No respiratory distress, No accessory muscle use, Crackles - left base- chronic Cardiovascular: Positive: RRR Musculoskeletal: Positive: ROM Intact, Edema @ - pretibial Neurological: Positive: Alert Psychological Exam: Normal Skin Exam: Normal Diagnostics - Laboratory Lab Results: influenza (-) UA +++ protein Respiratory Course/Dx - Differential Dx/Diagnosis Provider Diagnosis: Influenza-like illness Discharge ED - Sign-Out/Discharge Documenting (check all that apply): Patient Departure All imaging exams completed and their final reports reviewed: No Studies - Discharge Plan Condition: Stable Disposition: HOME Prescriptions: Oseltamivir CAP* [Tamiflu CAP*] 75 mg PO BID #10 cap Patient Education Materials: Influenza (ED) Referrals: Mo Caal MD [Primary Care Provider] - As Soon As Possible (call tomorrow to discuss follow up ) Additional Instructions: despite negative flu test we will start tamiflu - Billing Disposition and Condition Condition: STABLE Disposition: Home
== END 2019-06-12 20:32 | disposition home or self-care (01) ==
LOC: UCCORT 17:58
DX: R09.81 Nasal congestion (principal); R09.89 Other specified symptoms and signs involving the circulatory and respiratory systems; R05 Cough; R50.9 Fever, unspecified; R51 Headache; R53.83 Other fatigue; R53.81 Other malaise; J44.9 Chronic obstructive pulmonary disease, unspecified; E11.9 Type 2 diabetes mellitus without complications; I10 Essential (primary) hypertension; Z88.0 Allergy status to penicillin; Z88.1 Allergy status to other antibiotic agents; Z88.2 Allergy status to sulfonamides; Z88.4 Allergy status to anesthetic agent; Z79.4 Long term (current) use of insulin; Z79.82 Long term (current) use of aspirin; Z79.899 Other long term (current) drug therapy
CPT/HCPCS: 81003; 99212; G0463

== ENCOUNTER 2019-08-05 17:36 | Emergency (ER) | payer MEDICARE, BC ==
[2019-08-05 17:52] VITALS: BP 142/48
--- NOTE | 2019-08-05 18:23 | UC ---
Throat Pain/Nasal Edis HPI - HPI Summary HPI Summary: 73 yo woman with c/o increasing SOB x 3 days after finishing prednisone. Continuing doxycycline. - History of Current Complaint Chief Complaint: UCGeneralIllness Stated Complaint: SINUSES Time Seen by Provider: 08/05/19 17:54 Hx Obtained From: Patient Hx Last Menstrual Period: n/a Onset/Duration: Gradual Onset, Lasting Days - 3, Worse Since - Severity: Mild Pain Intensity: 3 Cough: Nonproductive Associated Signs & Symptoms: Positive: Wheezing Related History: Seasonal Allergies - Allergies/Home Medications Allergies/Adverse Reactions: Allergies Allergy/AdvReac Type Severity Reaction Status Date / Time cefaclor [From Ceclor] Allergy Intermediate Rash Verified 08/05/19 17:48 Penicillins Allergy Intermediate Rash Verified 08/05/19 17:48 benzocaine Allergy Mild Rash Verified 08/05/19 17:48 doxycycline AdvReac Intermediate GI Upset Verified 08/05/19 17:48 levofloxacin [From Levaquin] AdvReac total body Verified 08/05/19 17:48 weakness, could not walk Sulfa (Sulfonamide AdvReac Diarrhea Verified 08/05/19 17:48 Antibiotics) zithromax AdvReac See Comment Uncoded 08/05/19 17:48 Home Medications: Home Medications Aspirin EC TAB* [Ecotrin EC Low Dose 81 MG*] 81 mg PO QAM 08/15/14 [History Confirmed 08/05/19] Calcium Carbonate [Tums Ultra] 1,000 mg PO QAM 08/15/14 [History Confirmed 08/04] Cholecalciferol (Vitamin D3) [Vitamin D3] 1,000 unit PO TID 08/15/14 [History Confirmed 08/05/19] Divalproex ER TAB(*) [Depakote ER TAB(*)] 500 mg PO QPM 08/15/14 [History Confirmed 08/05/19] Metoprolol Tartrate TAB* [Lopressor TAB*] 12.5 mg PO BID 08/15/14 [History Confirmed 08/05/19] levETIRAcetam TAB* [Keppra TAB*] 500 mg PO DAILY 08/15/14 [History Confirmed ] Fluticasone-Salmeterol 250-50* [Advair Diskus 250-50*] 1 puff INH BID 09/25/14 [ History Confirmed 08/05/19] Furosemide TAB* [Lasix TAB*] 20 mg PO QAM 05/02/17 [History Confirmed 08/05/19] amLODIPine TAB* [Norvasc 5 mg TAB*] 7.5 mg PO QAM 05/02/17 [History Confirmed ] Umeclidinium 62.5 MDI(NF) [Incruse ELLIPTA MDI (NF)] 2 inh INH QPM 12/05/17 [ History Confirmed 08/05/19] Alirocumab [Praluent Pen] 75 mg SUBCUT Q14D 08/08/18 [History Confirmed 08/05/19 ] Escitalopram * [Lexapro 5 mg (NF)] 5 mg PO DAILY 08/08/18 [History Confirmed ] Levothyroxine TAB* [Synthroid 100 MCG TAB*] 112 mcg PO DAILY 08/08/18 [History Confirmed 08/05/19] Multivitamins/Minerals TAB* [Theragran/minerals TAB*] 1 tab PO DAILY 08/08/18 [ History Confirmed 08/05/19] Primidone 50 mg TAB (*) [Mysoline 250 mg TAB (*)] 50 mg PO BEDTIME 08/08/18 [ History Confirmed 08/05/19] Cyanocobalamin (Vitamin B-12) [Vitamin B-12] 2,500 mcg PO SEE INSTRUCTIONS 05/08 [History Confirmed 08/05/19] Insulin LISPRO* [HumaLOG 100 units/ml 3 ml VIAL *] 0.6 units SUBCUT SEE INSTRUCTIONS 05/08/19 [History Confirmed 08/05/19] Magnesium Hydroxide [Pedia-Lax] 400 mg PO BEDTIME 05/08/19 [History Confirmed ] Ondansetron [Ondansetron Odt] 4 mg PO DAILY 05/08/19 [History Confirmed 08/05/19 ] Ascorbic Acid TAB* [Vitamin C TAB*] 500 mg PO DAILY 06/12/19 [History Confirmed 08/05/19] Ferrous Sulfate TAB* 325 mg PO DAILY 06/12/19 [History Confirmed 08/05/19] Losartan Potassium 100 mg PO DAILY 06/12/19 [History Confirmed 08/05/19] Oseltamivir CAP* [Tamiflu CAP*] 75 mg PO BID #10 cap 06/12/19 [Rx Confirmed ] Cefdinir [Cefdinir 300 MG CAP] 300 mg PO BID #20 capsule 08/05/19 [Rx] Hydralazine HCl 25 mg PO BID 08/05/19 [History Confirmed 08/05/19] predniSONE 20 mg TAB [Deltasone 20 MG TAB*] 60 mg PO DAILY #18 tab 08/05/19 [Rx] PMH/Surg Hx/FS Hx/Imm Hx Endocrine History: Diabetes, Hypothyroidism Cardiovascular History: Cardiac Disease Respiratory History: COPD - Surgical History Surgical History: Yes Surgery Procedure, Year, and Place: CORONARY BYPASS- QUAD-2008. GALL BLADDER REMOVAL,BLADDER REPAIR. RIGHT leg vascular surgery 2014. heart cath x 2 last one two weeks ago - Family History Known Family History: Positive: Cardiac Disease Negative: Diabetes - Social History Occupation: Retired Lives: With Family Alcohol Use: None Substance Use Type: None Substance Use Comment - Amount & Last Used: no narcotics Smoking Status (MU): Never Smoked Tobacco Have You Smoked in the Last Year: No - Immunization History Most Recent Influenza Vaccination: 2016 Most Recent Tetanus Shot: 05/02/17 Most Recent Pneumonia Vaccination: UTD Vaccination Up to Date: Yes Review of Systems All Other Systems Reviewed And Are Negative: Yes Constitutional: Positive: Fatigue Respiratory: Positive: Shortness Of Breath, Cough Physical Exam Triage Information Reviewed: Yes Appearance: Well-Appearing, No Pain Distress, Cachectic - frail appearing Vital Signs: Initial Vital Signs Temp 98.2 F 08/05/19 17:49 Pulse 86 08/05/19 17:49 Resp 22 08/05/19 17:49 BP 142/48 08/05/19 17:49 Pulse Ox 96 08/05/19 17:49 Vital Signs Reviewed: Yes Eyes: Positive: Conjunctiva Clear ENT: Positive: Pharynx normal, TMs normal - moderately obscurred by wax Neck exam: Normal Respiratory: Positive: Decreased breath sounds, Crackles - bilateral chronic crackles right > left. Cardiovascular Exam: Normal Musculoskeletal Exam: Normal Neurological Exam: Normal Psychological Exam: Normal Skin Exam: Normal Throat Pain/Nasal Course/Dx - Differential Dx/Diagnosis Differential Diagnosis/HQI/PQRI: Laryngitis, Otitis Media, Sinusitis, URI Provider Diagnosis: COPD, frequent exacerbations Discharge ED - Sign-Out/Discharge Documenting (check all that apply): Patient Departure All imaging exams completed and their final reports reviewed: No Studies - Discharge Plan Condition: Stable Disposition: HOME Prescriptions: Cefdinir [Cefdinir 300 MG CAP] 300 mg PO BID #20 capsule predniSONE 20 mg TAB [Deltasone 20 MG TAB*] 60 mg PO DAILY #18 tab Patient Education Materials: COPD (Chronic Obstructive Pulmonary Disease) (ED) Referrals: Mo Caal MD [Primary Care Provider] - 5 Days - Billing Disposition and Condition Condition: STABLE Disposition: Home
== END 2019-08-05 18:50 | disposition home or self-care (01) ==
LOC: UCCORT 17:36
DX: J44.1 Chronic obstructive pulmonary disease with (acute) exacerbation (principal); E11.9 Type 2 diabetes mellitus without complications; E03.9 Hypothyroidism, unspecified; Z79.4 Long term (current) use of insulin; Z79.890 Hormone replacement therapy; Z95.1 Presence of aortocoronary bypass graft; Z88.4 Allergy status to anesthetic agent; Z88.1 Allergy status to other antibiotic agents; Z88.0 Allergy status to penicillin; Z88.2 Allergy status to sulfonamides; Z79.82 Long term (current) use of aspirin
CPT/HCPCS: 99212; G0463; J7512